=== PATIENT | female | born 1960 | race Caucasian/White ===

== ENCOUNTER 2016-07-08 18:54 | Inpatient (IN) | payer BC, OTHER ==
[~2016-07-08] VITALS: Ht 160 cm; Wt 56.7 kg
[2016-07-08 21:48] VITALS: BP 124/76
--- NOTE | 2016-07-08 21:51 | NUR ---
Pre-admission assessment Patient is a 56-year old, female, seen at intake at this time. Pt appears intoxicated from substances but is AAOx4, no SOB nor anxiety noted and able to respond to questions coherently. Pt is ambulatory with slight unsteady gait observed. Pt reported the following substance use: Heroin, Harvey, Xanax, Meth and Marijuana. Per pt, she smokes Heroin currently. Previous IV use was "9 months ago." Vital signs taken and as follows: JN=867/76, P=84, O2 sat on RA=96%, RR=20, T=98.4. Pt verbalized instructions and teachings regarding disposal of narcotic and other controlled home meds, unit protocols such as taking of vital signs Q4H and handling and disposal of contraband.
[2016-07-08 22:01] LABS: *URINE HCG, QUAL NEGATIVE (NEGATIVE)
[2016-07-08 22:07] LABS: *AMPHETAMINE, URINE POSITIVE (NEGATIVE); *BARBITURATE, URINE NEGATIVE (NEGATIVE); *CANNABINOID, URINE POSITIVE (NEGATIVE); *COCCAINE, URINE NEGATIVE (NEGATIVE); *OPIATE, URINE POSITIVE (NEGATIVE); *PHENCYCLIDINE SCREEN,URINE NEGATIVE (NEGATIVE)
--- NOTE | 2016-07-08 22:10 | NUR ---
ADMISSION Patient is a 56-year old, male, admitted and escorted by [facility] at 2155 to unit. Patient verbalized she is currently homeless for the past 2 weeks when her boyfriend kicked her out of the house when her boyfriend immediately caught her on the day she relapsed . Skin check done, no open skin noted, with blisters on both feet. Per patient, "the blisters are due to walking too much being homeless." With history of suicide attempt, last was more than 5 years ago. Currently, patient denies Suicidal Ideation nor Homicidal Ideation. No edema noted. Pt is ambulatory with slight unsteady gait noted due to intoxication. Pt stands 5'3" and weighs 125 pounds per standing scale. Vital signs are as follows: BP-120/68, T-97.4, P-74, RR-18 and SPO2 on RA=98%. Patient is AAOx4 and with no anxiety noted at this time. Lung sounds clear bilaterally upon auscultation. No cough noted and bowel sounds are present on all quadrants. PERRLA and pupils are 2 mm upon visual check. Pt reports NKA, on Regular Diet and is Full Code. Pt denies any seizure history. Per pt, withdrawal symptoms are Insomnia, chills, constipation, nausea and vomiting, colds sweats, irritability, anxiety, generalized body pain patricia both hands, both legs and neck and goosebumps. Substance history as follows: 1) Xanax-per pt, he started using at age 14. Patient stated that when she relapsed 2 weeks ago, she has been taking "4 mg PO, 5 times a day". She said that her doctor prescribes Xanax 1 mg PO daily and she takes more than prescribed. Last use was 07/08/2016 at 1800, 2 mg PO. 2) Heroin-per pt, he started using at age 20. Last IV use was 09/2015. For the past 2 weeks when patient relapsed, patient verbalized using the substance via smoking 1/2 gms daily. Last use was 07/08/2016 at 1400, 0.5 gm smoked. 3) Methampetamine-per pt, he started using at age 17 and since the relapse 2 weeks ago, patient verbalized smoking the substance "at least 1.5 gms daily. Last use was 07/08/2016 at 2100, 1.5 gm smoked. 4) Cannabis-per pt, he started using at age 12 and since the relapse, pt has been smoking on average 2 joints daily. Last use was 07/08/2016 at 1700, smoked 1 joint. Patient verbalized the he does not drink alcohol regularly. Per pt, she drinks red wine intermittently. Longest sobriety 11 years, [id number]. Patient informed PMHx of Enlargement of the heart, Fibromyalgia, Anxiety, Depression, Arthritis on both hands and neck, Hepatitis C, Pancreatitis, Drug Overdose (last in 09/2015, [facility]), Kidney Failure, Liver Failure and Pancreatitis (1992), Hypothyroidism, Endometriosis and Anorexia. Per pt, PCP is Dr. Albino Castle and no Psychiatirist. Home medications mentioned by the patient were reconciled. Treatment history as follows: Per pt, she has been to 16 programs and "a lot more detoxes." The last 3 places that the patient has been able ot recall are: 1) [facility] in [place], [place]-09/2015 to 02/2016 1) [facility] in [place], [place]-2014 3) [facility] in [place], [place]-2013 Patient reports smoking cigarettes, [place] Medium, about 1 pack daily. Oriented patient to room and instructed with the use of the call light, placed within reach. Fall, universal, seizure and safety precautions implemented. Kept patient warm, dry and comfortable. No c/o significant pain at this time All needs met. Information relayed to Dr. Hernandez. Patient refused Pneumonia vaccine despite explanation of risks and benefits and Flu vaccine is out of season. COWS=4, CIWA=4. Will continue to monitor. Addendum: 07/09/16 at 0122 by BETZY YOUNG RN Correction: Patient is female.
[2016-07-08] MEDS ORDERED: PROMETHAZINE HCL 25 MG/1 ML VIAL IM PRN (23:45)
[2016-07-08] MEDS ORDERED: IBUPROFEN 400 MG TABLET PO PRN (23:45)
[2016-07-08] MEDS ORDERED: CLONIDINE HCL 0.1 MG TABLET PO PRN (23:45)
[2016-07-08] MEDS ORDERED: BUPRENORPHINE HCL 2 MG TAB.SUBL SL PRN (23:45)
[2016-07-08] MEDS ORDERED: LORAZEPAM 2 MG/1 ML VIAL IM PRN (23:45)
[2016-07-08] MEDS ORDERED: DICYCLOMINE HCL 20 MG TABLET PO PRN (23:45)
[2016-07-08] MEDS ORDERED: diphenhydrAMINE 50 MG CAPSULE PO PRN (23:45)
[2016-07-08] MEDS ORDERED: HYDROXYZINE PAMOATE 25 MG CAPSULE PO PRN (23:45)
[2016-07-08] MEDS ORDERED: ACETAMINOPHEN 325 MG TABLET PO PRN (23:45)
[2016-07-08] MEDS ORDERED: MAG HYDROX/AL HYDROX/SIMETH 30 ML LIQUID UDC PO PRN (23:45)
[2016-07-08] MEDS ORDERED: MIRALAX 17 GM POWD.PACK PO PRN (23:45)
[2016-07-08] MEDS ORDERED: DIAZEPAM 10 MG TABLET PO PRN ×2 (23:45)
[2016-07-08] MEDS ORDERED: MAGNESIUM HYDROXIDE 30 ML LIQUID UDC PO PRN (23:45)
[2016-07-08] MEDS ORDERED: DIAZEPAM 5 MG TABLET PO PRN (23:45)
[2016-07-08] MEDS ORDERED: LOPERAMIDE HCL 2 MG CAPSULE PO PRN ×2 (23:45)
[2016-07-09] VITALS: BP 130/74
[2016-07-09 00:15] LABS: BASOPHILS % (AUTO) 0.7 % (0.0-2.0); EOSINOPHILS # (AUTO) 0.4 K/uL (0.0-0.7); EOSINOPHILS % (AUTO) 6.2 % (0.0-7.0); HEMATOCRIT 35.5 % (37-47); HEMOGLOBIN 11.6 G/DL (12.0-16.0); LYMPHOCYTES # (AUTO) 2.4 K/UL (0.8-4.8); LYMPHOCYTES % (AUTO) 34.9 % (20.5-51.5); MEAN CORPUSCULAR HEMOGLOBIN 29.5 UUG (27.0-31.0); MEAN CORPUSCULAR HGB CONC 33 g/dL (32.0-37.0); MONOCYTES # (AUTO) 0.7 K/UL (0.1-1.30); MONOCYTES % (AUTO) 10.5 % (0.0-11.0); NEUTROPHILS # (AUTO) 3.5 K/UL (1.8-8.9); NEUTROPHILS % (AUTO) 47.7 % (38.5-71.5); PLATELET COUNT (AUTO) 283 K/UL (150-450); RED BLOOD CELL COUNT(AUTO) 3.94 MIL/UL (4.2-5.4)
[2016-07-09] MEDS: METHOCARBAMOL 750 MG TABLET PO PRN (00:36)
--- NOTE | 2016-07-09 00:37 | NUR ---
RN note PRN Phenergan, Robaxin and Vistaril Pt c/o feeling nauseous, generalized muscle pain=5/10 and increasing anxiety. Administered Phenergan 25 mg IM, Robaxin 750 mg PO and Vistaril 50 mg PO as ordered. WIll reassess.
[2016-07-09 00:40] LABS: ALANINE AMINOTRANSFERASE 24 U/L (14-59); ALKALINE PHOSPHATASE 77 U/L (50-136); AMYLASE 51 U/L (25-115); ASPARTATE AMINOTRANSFERASE 27 U/L (15-37); BILIRUBIN,TOTAL 0.3 mg/dL (0.2-1.0); CARBON DIOXIDE 29 mmol/L (21-32); CHLORIDE 102 mmol/L (98-107); GLUCOSE 99 mg/dL (74-106); MAGNESIUM 2.1 mg/dL (1.8-2.4); POTASSIUM 3.1 mmol/L (3.5-5.1); TOTAL PROTEIN, SERUM 7.1 g/dL (6.4-8.2); UREA NITROGEN, BLOOD 14 mg/dL (7-18)
[2016-07-09] MEDS ORDERED: HYDROXYZINE PAMOATE 25 MG CAPSULE ONE (00:42)
[2016-07-09] MEDS ORDERED: METHOCARBAMOL 750 MG TABLET ONE (00:42)
[2016-07-09 00:47] LABS: ETHANOL < 3 MG/DL (0-0)
[2016-07-09 00:53] LABS: THYROID STIMULATING HORMONE 2.062 mIU/mL (0.358-3.740)
--- NOTE | 2016-07-09 00:54 | NUR ---
RN note one-time Trazodone Pt verbalized that she takes Trazodone 100 mg PO HS for sleep. Communicated with Dr. Bourgeois. ordered one-time Trazodone 100 mg PO. Administered medication as ordered and will reassess.
[2016-07-09] MEDS ORDERED: TRAZODONE 100 MG TABLET PO SCH (01:00)
[2016-07-09 01:11] LABS: LIPASE 145 U/L (73-393)
[2016-07-09] MEDS ORDERED: ATOM25CA PO (01:15)
[2016-07-09] MEDS ORDERED: TRAZ-147 PO (01:15)
[2016-07-09] MEDS ORDERED: POTASSIUM CHLORIDE 20 MEQ TAB.PRT.SR PO ONE (01:15)
[2016-07-09] MEDS ORDERED: ALPR1TAB7 PO (01:15)
[2016-07-09] MEDS ORDERED: POTASSIUM CHLORIDE 20 MEQ TAB.PRT.SR ONE (01:27)
--- NOTE | 2016-07-09 01:55 | NUR ---
RN note reassess Pt asleep on bed, no facial grimacing nor SOB noted. Pt on bed, comfortably tucked. Effective.
[2016-07-09 04:00] VITALS: BP 118/70
--- NOTE | 2016-07-09 07:07 | NUR ---
End of Shift Patient is a 56-year old, female, admitted for Xanax, Heroin, Methamphetamine and Cannabis Dependence. With PMHx of Enlargement of the heart, Fibromyalgia, Anxiety, Depression, Arthritis on both hands and neck, Hepatitis C, Pancreatitis, Drug Overdose (last in 09/2015, [facility]), Kidney Failure, Liver Failure and Pancreatitis (1992), Hypothyroidism, Endometriosis and Anorexia. Pt reports NKA, on Regular Diet and is Full Code. Pt denies any seizure history. Pt is AAOx4, with mild anxiety noted at this time. No SOB noted, not in respi distress. Pt is ambulatory with slight unsteady gait and with intact skin. Wheelchair at bedside PRN. Fall, universal and safety prec in place. Call light within reach. Kept pt warm, dry and comfortable. All needs met. Latest COWS=5, CIWA=4, slept for 6 hours. Endorsed to AM shift nurse for continuity of care.
--- NOTE | 2016-07-09 07:57 | NUR ---
START OF SHIFT: PT IS LAYING IN BED ASLEEP. RESPIRATIONS EVEN AND UNLABORED. BED LOCKED AND LOW. CALL ZAMUDIO IN REACH. WILL CONTINUE TO MONITOR AND PROVIDE SAFE AND SUPPORTIVE ENVIRONMENT.
[2016-07-09 08:00] VITALS: BP 116/69
[2016-07-09] MEDS ORDERED: ONDANSETRON 4 MG/2 ML VIAL IM PRN (08:15)
[2016-07-09] MEDS ORDERED: TUBERCULIN,PURIF.PROT.DERIV. 5 TU/0.1 ML TEST ID ONE (09:00)
[2016-07-09] MEDS: ONDANSETRON ODT 4 MG TAB.RAPDIS SL PRN (10:16)
[2016-07-09] MEDS: MULTIVITAMINS,THERAPEUTIC TABLET PO SCH (10:20)
--- NOTE | 2016-07-09 10:25 | NUR ---
PT IS A/O X 4. SHE IS SOBBING AND STATES SHE IS MISERABLE WITH CHILLS,SWEATS,BODY ACHES, AND ANXIETY. SHE ALSO C/O NAUSEA. FINE TREMORS NOTED TO HANDS. SHE IS FLUSHED. SHE STATES SHE HAS SEVERE MUSCLE ACHES IN HER LEGS AND SHE STATES HER LEGS FEEL WEAK. COWS 14 CIWA 8 INSTRUCTED PT TO USE W/C FOR AMBULATION TODAY DUE TO WEAKNESS IN LEGS. PRN ZOFRAN GIVEN FOR NAUSEA FOLLOWED WITH PRN SUBUTEX 4 MG AND PRN VALIUM 10 MG GIVEN FOR S/S OF W/D. ENCOURAGED INCREASED FLUIDS WHEN NAUSEA CEASES. PPD PLANTED TO LFA. WILL CONTINUE TO MONITOR AND PROVIDE SUPPORT.
--- NOTE | 2016-07-09 11:25 | NUR ---
PT STATES SHE FEELS BETTER. PRNS EFFECTIVE. COWS 7 CIWA 4.
[2016-07-09 12:00] VITALS: BP 100/72
[2016-07-09] MEDS ORDERED: LORAZEPAM 1 MG TABLET PO PRN ×2 (12:45)
[2016-07-09] MEDS: LORAZEPAM 1 MG TABLET PO SCH ×3 (12:56→21:02)
[2016-07-09] MEDS: BUPRENORPHINE HCL 2 MG TAB.SUBL SL SCH ×3 (12:57→21:02)
[2016-07-09] MEDS: GABAPENTIN 300 MG CAPSULE PO SCH ×2 (15:00→21:02)
[2016-07-09] MEDS: TOPIRAMATE 25 MG TABLET PO SCH ×2 (15:45→21:03)
[2016-07-09] MEDS: DULOXETINE 30 MG CAPSULE.DR PO SCH (15:45)
[2016-07-09 16:00] VITALS: BP 107/73
--- NOTE | 2016-07-09 16:13 | NUR ---
HELD 1500 MEDS PT IS TOO SEDATED. SHE IS SLURRING HER WORDS AND CANNOT KEEP HR EYES OPENED. ALSO DEFERRED COWS AND CIWA. WILL CONTINUE TO PROVIDE SAFE AND SUPPORTIVE ENVIRONMENT.
--- NOTE | 2016-07-09 18:50 | NUR ---
END OF SHIFT: PT STARTED SUBUTEX TAPER TODAY. SHE C/O NAUSEA,BODY ACHES,RESTLESSNESS,ANXIETY,SWEATS AND CHILLS THIS AM AND WAS TEARFUL. SHE STATED HER LEGS WERE WEAK AND ACHY AND INSTRUCTED TO USE WC FOR AMBULATION. DETOX MEDS WERE EFFECTIVE. SHE BECAME TOO SEDATED THIS AFTERNOON AND 1500 MEDS HELD AND COWS AND CIWA DEFERRED. LAST COWS 7 CIWA 4. PPD PLANTED TO LFA. ENCOURAGED INCREASED FLUIDS AND PT COMPLIANT. ENCOURAGED INCREASED FLUIDS TO ASSIST IN FACILITATING DETOX PROCESS. WILL PASS SHIFT REPORT TO ONCOMING NIGHT NURSE.
[2016-07-09 20:00] VITALS: BP 104/63
--- NOTE | 2016-07-09 20:00 | NUR ---
Start of Shift Patient is a 56-year old, female, admitted for Xanax, Heroin, Methamphetamine and Cannabis Dependence. With PMHx of Enlargement of the heart, Fibromyalgia, Anxiety, Depression, Arthritis on both hands and neck, Hepatitis C, Pancreatitis, Drug Overdose (last in 09/2015, [facility]), Kidney Failure, Liver Failure and Pancreatitis (1992), Hypothyroidism, Endometriosis and Anorexia. Pt reports NKA, on Regular Diet and is Full Code. Pt denies any seizure history. Pt is AAOx4, with mild anxiety noted at this time. No SOB noted, not in respi distress. Pt is ambulatory with steady gait and with intact skin. Fall, universal, seizure and safety prec in place. Call light within reach. All needs met. COWS=7, CIWA=5. Will continue to monitor pt.
[2016-07-09] MEDS ORDERED: DICYCLOMINE HCL 20 MG TABLET PO PRN (20:45)
[2016-07-09] MEDS: TRAZODONE 100 MG TABLET PO SCH (21:02)
--- NOTE | 2016-07-09 21:04 | NUR ---
RN note PRN Bentyl Pt c/o stomach cramps=07/28. Administered Bentyl 20 mg PO as ordered. Will reassess.
--- NOTE | 2016-07-09 22:05 | NUR ---
RN note reassess Pt verbalized stomach cramps has been relieved, pain level=2/10.
[2016-07-10] VITALS: BP 100/58
[2016-07-10 04:00] VITALS: BP 104/59
--- NOTE | 2016-07-10 07:02 | NUR ---
End of Shift Patient is a 56-year old, female, admitted for Xanax, Heroin, Methamphetamine and Cannabis Dependence. With PMHx of Enlargement of the heart, Fibromyalgia, Anxiety, Depression, Arthritis on both hands and neck, Hepatitis C, Pancreatitis, Drug Overdose (last in 09/2015, [facility]), Kidney Failure, Liver Failure and Pancreatitis (1992), Hypothyroidism, Endometriosis and Anorexia. Pt reports NKA, on Regular Diet and is Full Code. Pt denies any seizure history. Pt is AAOx4, with mild anxiety noted at this time. No SOB noted, not in respi distress. Pt is ambulatory with steady gait and with intact skin. Fall, universal, seizure and safety prec in place. Call light within reach. All needs met. COWS=4, CIWA=3, slept for 6 hours. Endorsed to AM shift nurse for continuity of care.
[2016-07-10 07:42] LABS: POTASSIUM 3.9 mmol/L (3.5-5.1)
[2016-07-10 08:00] VITALS: BP 107/80
[2016-07-10 08:06] LABS: HEPATITIS B SURFACE AG Negative (Negative)
--- NOTE | 2016-07-10 08:15 | NUR ---
START OF SHIFT: RECEIVED PT A/O X 4. HER HANDS ARE TREMULOUS . HER FACE IS FLUSHED . SHE C/O SEVERE MUSCLE ACHES/CRAMPS,ANXIETY. WEAKNESS,CHILLS,SWEATS AND SENSITIVITY TO NOISE AND LIGHT. ATIVAN/SUBUTEX TAPER IN PROGRESS. COWS 10 CIWA 7. PRN ROBAXIN GIVEN ALONG WITH SCHEDULED MEDS FOR MUSCLE ACHES.SAFETY PRECAUTIONS IN PLACE. ENCOURAGED INCREASED FLUIDS TO ASSIST IN FACILITATING DETOX PROCESS.ENCOURAGED REST. WILL CONTINUE TO MONITOR AND PROVIDE SAFE AND SUPPORTIVE ENVIRONMENT.
[2016-07-10] MEDS: LORAZEPAM 1 MG TABLET PO SCH ×3 (08:19→21:48)
[2016-07-10] MEDS: MULTIVITAMINS,THERAPEUTIC TABLET PO SCH (08:19)
[2016-07-10] MEDS: METHOCARBAMOL 750 MG TABLET PO PRN ×2 (08:19→21:53)
[2016-07-10] MEDS: DULOXETINE 30 MG CAPSULE.DR PO SCH (08:20)
[2016-07-10] MEDS: GABAPENTIN 300 MG CAPSULE PO SCH ×3 (08:20→21:49)
[2016-07-10] MEDS: BUPRENORPHINE HCL 2 MG TAB.SUBL SL SCH ×3 (08:20→21:50)
[2016-07-10] MEDS: TOPIRAMATE 25 MG TABLET PO SCH ×2 (08:20→21:49)
--- NOTE | 2016-07-10 10:54 | NUR ---
Clinician asked the client if she would be able to attend groups. Client said she is very tired and needs to sleep. Client had difficulty staying awake to answer the questions on her psycho-social assessment.
[2016-07-10 12:00] VITALS: BP 107/72
--- NOTE | 2016-07-10 12:45 | NUR ---
COWS AND CIWA DEFERRED PT IS ASLEEP. VS WNL. RESPIRATIONS EVEN AND UNLABORED. BED LOCKED AND LOW. CALL ZAMUDIO IN REACH. WILL CONTINUE TO PROVIDE SAFE AND SUPPORTIVE ENVIRONMENT.
[2016-07-10 16:00] VITALS: BP 123/74
--- NOTE | 2016-07-10 16:05 | NUR ---
HELD 1500 MEDS . PT IS SLURRING HER SPEECH AND FALLING ASLEEP DURING CONVERSATION.
--- NOTE | 2016-07-10 18:30 | NUR ---
END OF SHIFT: PT CONTINUES ON ATIVAN/SUBUTEX TAPER.LAST COWS 3 CIWA 3 SHE C/O MUSCLE ACHES,CRAMPS,ANXIETY.CHILLS AND SWEATS THIS AM. PRN ROBAXIN GIVEN ALONG WITH SCHEDULED MEDS FOR MUSCLE ACHES AND WAS EFFECTIVE. PT SLEPT OFF AND ON DURING SHIFT AND WAS TOO SEDATED FOR AFTERNOON MEDS.1500 MEDS HELD. ENCOURAGED BED REST AND INCREASED FLUIDS. BED LOCKED AND LOW. CALL ZAMUDIO IN REACH. WILL PASS SHIFT REPORT TO ONCOMING NIGHT NURSE.
[2016-07-10 20:00] VITALS: BP 119/86
--- NOTE | 2016-07-10 20:00 | NUR ---
1999 Patient received sleeping in low semi-fowlers position. Patient's color is pink and her skin is warm, very slightly moist and intact. Patient aroused for V/S and nurse assess. Patient states, "Oh hi. You know I though that I would be feeling much better by now. I don't know" Patient's lung sounds are clear essentially, though slightly diminished with rare rhonchi noted, that is cleared upon short, dry cough, and hypoactive bowel sounds are noted X 4 abdominal Quads, per auscultation. Patient denies any pain or other discomforts, though she c/o just feeling " very tired, I don't know" Patient is oriented to person, place, day and her personal situation. Reoriented to date and time. Patient states that she has really not eaten her regular diet trays too much today, though she states that she has been taking fluids a lot better. Patient states that she did not regularly attend [employer] groups today, though she does try her best to attend when she is feeling up to it. Vital signs are: 97.6-87-12 119/86, O2 Sat 97%, COWS 6, CIWA 5. Patient has clean, dry band-aid dressings to front of bilateral feet. Bilateral feet are pink and warm with good pedal pulses noted. Patient states that she has some healing 'blisters underneath dressings'. Patient does appear a bit drowsy but is verbally appropriate, though her speech is very slightly delayed in delivery, and she is also cooperative when interacting with nurse. Eye contact is direct, though minimal and her overall affect is flat. Patient was admitted on 07/08/16 for: Xanax, Heroin, Methamphetamine and Cannabis withdrawal, and she is currently on a 5-Day Ativan medication taper and a 5-Day Subutex medication taper per MD order. Bed is locked and in lowest position, bed rails are up X 2 and call light within patient's easy reach.
--- NOTE | 2016-07-10 20:45 | NUR ---
Patient took fluids, voided and washed her face at the bathroom sink and then she went ambulatory downstairs to hospital patio to smoke. Gait is slightly slow, measured but steady. Patient states, " I'm okay".
--- NOTE | 2016-07-10 21:10 | NUR ---
Patient back to her room in wheelchair, accompanied by staff Yaw lynne. Aniket states that patient did not want to walk back to the floor on her bilateral feet band-aid dressings. Dressings are clean, dry and intact to patient's feet. Patient got snack in kitchen and then she was wheeled to her room, where she got into her bed. Bed rails put up X 2 and call light at patient's hand.
[2016-07-10] MEDS: TRAZODONE 100 MG TABLET PO SCH (21:48)
--- NOTE | 2016-07-10 21:53 | NUR ---
PRN MEDICATION: Prn Robaxin 750 mg p.o. given for c/o achey muscles, 6/10 pain scale.
--- NOTE | 2016-07-10 22:53 | NUR ---
REASSESSMENT PRN MEDICATION: Patient is sleeping soundly with eyes closed and respirations quiet, regular, unlabored at 12.
[2016-07-11] VITALS: BP 98/67
[2016-07-11 04:00] VITALS: BP 100/69
--- NOTE | 2016-07-11 06:30 | NUR ---
0630 Patient slept a total of 9 hours and she had 1 void and no stools. Total intake was 855 ml p.o. Prn medication given noted separately per floor protocol. V/SS afebrile, COWS 4, COWS 3 at 0400. Patient is presently sleeping very deeply with eyes closed and respirations quiet, unlabored at 12. Patient is arouseable with touch and calling her name firmly at this time. Addendum: 07/11/16 at 0735 by SHAYNE SILVA RN LICHA at 0400 is 3
[2016-07-11 08:00] VITALS: BP_SYST 106; BP_SYST 135; BP_DIAS 62; BP_DIAS 79
[2016-07-11] MEDS ORDERED: BUPRENORPHINE HCL 2 MG TAB.SUBL SL SCH (09:00)
[2016-07-11] MEDS ORDERED: DULOXETINE 30 MG CAPSULE.DR PO SCH (09:00)
[2016-07-11] MEDS: GABAPENTIN 300 MG CAPSULE PO SCH ×3 (09:34→21:01)
[2016-07-11] MEDS: MULTIVITAMINS,THERAPEUTIC TABLET PO SCH (09:34)
[2016-07-11] MEDS: METHOCARBAMOL 750 MG TABLET PO PRN (09:34)
[2016-07-11] MEDS: LORAZEPAM 1 MG TABLET PO SCH ×4 (09:34→21:01)
--- NOTE | 2016-07-11 09:34 | NUR ---
PRN ROBAXIN AND ONDASETRON ODT Patient reports body pain 5/10 and nausea. PRN robaxin and ondansetron ODT given. will continue to monitor patient and effectiveness of meds.
[2016-07-11] MEDS: TOPIRAMATE 25 MG TABLET PO SCH ×2 (09:35→21:02)
[2016-07-11] MEDS: ONDANSETRON ODT 4 MG TAB.RAPDIS SL PRN (09:35)
[2016-07-11] MEDS: DULOXETINE 60 MG CAPSULE.DR PO SCH (09:35)
--- NOTE | 2016-07-11 10:00 | NUR ---
START OF SHIFT Received report from retail shift leader nurse. Received patient using the bathroom. Patient appears tremulous as she abi ut of bathroom, responsive to questions. Patient is 56 year old female admitted for medically supervised withdrawal from alcohol, benzodiazepines, and opiates. Patient is full code with NKA. On fall precautions. On assessment this AM: CIWA: 8 and COWS: 8. Patient reports anxiety, nausea, tremors, body aches and visual hallucinations (sees shadows of humans). Denies chest pain and headache. Patient reports poor appetite, encouraged to hydrate with fluids, provided patient with bottled water. Patient on 5- day Ativan and 5 Day Subutex taper. PRN ondansetron ODT and robaxin given. Med compliant. Patient was encouraged to attend group meetings today. Will continue to monitor patient.
--- NOTE | 2016-07-11 10:34 | NUR ---
REASSESSMENT (ROBAXIN AND ONDANSETRON) Patient reports nausea resolved and pain decreased to 2/10. Will continue to monitor patient.
[2016-07-11 12:00] VITALS: BP 96/64
[2016-07-11] MEDS ORDERED: BUPRENORPHINE HCL 2 MG TAB.SUBL SL ONE (12:00)
--- NOTE | 2016-07-11 13:00 | NUR ---
HELD 1300PM MED Held Ativan as patient too sedated. notified.
[2016-07-11] MEDS: BACLOFEN 10 MG TABLET PO SCH ×2 (15:00→21:01)
[2016-07-11] MEDS: BUPRENORPHINE HCL 2 MG TAB.SUBL SL SCH ×2 (15:00→21:01)
[2016-07-11] MEDS: DICYCLOMINE HCL 20 MG TABLET PO SCH ×2 (15:00→21:01)
--- NOTE | 2016-07-11 15:00 | NUR ---
MARCO AND ANTHONYWA DEFERRED Patient was too sedated for assessment at this time.
--- NOTE | 2016-07-11 15:00 | NUR ---
HELD 1500PM MEDS Patient was too sedated at this time. Held 1500pm meds. notified.
[2016-07-11 16:00] VITALS: BP 104/60
--- NOTE | 2016-07-11 19:09 | NUR ---
END OF SHIFT Patient is 56 year old female admitted for medically supervised withdrawal from alcohol, benzodiazepines, and opiates. Patient is full code with NKA. On fall precautions. Most recent CIWA: 3 and COWS: 4. Patient appears too sedated after receiving her Ativan and Subutex in the AM, with slowed speech. Initial BP at lunch time was low 12:00PM was 88/56, HR 80, recheck was 94/53, HR 76 and 96/64, HR 77. Assisted patient to hydrate with fluids, unable to stay awake for her lunch. Held Ativan 1300pm med and 1500pm meds due to sedation, MD aware. Orthopedic Dentist was informed by patient's referrer about the dark pigmentation on her tongue. On assesment, patches of purplish pigmentation noted on the anterior tongue, no lesions noted, Md notified. All needs met. invasive cardiologistretail shift leader will continue to monitor patient.
[2016-07-11 20:00] VITALS: BP 129/77
--- NOTE | 2016-07-11 20:00 | NUR ---
Start of Shift Note: Report received from day shift nurse. Pt is a 56 Y/O female admitted on 07/08/16 for medically-supervised withdrawal from benzodiazepine, opiates, and methamphetamine. Pt reports using 20mg Xanax, 0.5gm heroin, and 1.5gm methamphetamine daily for 2 weeks. Pt is on the third day of 5-day Ativan and Subutex tapers. Pt received with last COWS=4, CIWA=3, and PRN's Zofran, Robaxin, and Motrin were given during day shift. Pt reports NKDA/NKFA. Full code status. Pt is on a regular diet. Pt reports PMHx: enlarged heart, Hep-C, fibromyalgia, pancreatitis, anxiety, depression, arthritis, panic DO, hypothyroid, endometriosis, anorexia, drug OD (2015), kidney and liver failure with pancreatitis (1992). Pt received in room, and reports diaphoresis, chills, nausea, tremor, agitation, and fatigue. Bed is in low position and locked, side rails up x2, call light within reach. Will continue to monitor.
[2016-07-11] MEDS: TRAZODONE 100 MG TABLET PO SCH (21:01)
[2016-07-12] VITALS (7 sets, daily range): BP systolic 78–111; BP diastolic 40–69
--- NOTE | 2016-07-12 | NUR ---
COWS/CIWA Deferred: 00:00 COWS and CIWA assessments are deferred for sleep. VS stable on 2L O2. All safety precautions are in place. Will continue to monitor. Addendum: 07/12/16 at 0257 by LARY JEFFRIES RN Amended: Links added.
--- NOTE | 2016-07-12 00:30 | NUR ---
Decreased BP and SpO2: BP 78/40 and SpO2 80% on RA. Pt is drowsy and difficult to arouse. HOB raised and pt placed on 2L O2. Vitals reassessed and BP increased to 87/58 and SpO2 to 95%.
--- NOTE | 2016-07-12 04:00 | NUR ---
COWS/CIWA Deferred: Ordered 04:00 COWS and CIWA assessments are deferred for sleep. V/S stable. All safety precautions are in place. Will continue to monitor. Addendum: 07/12/16 at 0522 by LARY JEFFRIES RN Amended: Links added.
--- NOTE | 2016-07-12 06:57 | NUR ---
End of Shift Note: Pt is a 56 Y/O female admitted to [facility] on 07/08/16 for medically-supervised withdrawal from benzodiazepine, opiates, and methamphetamine. Pt reports PMHx: enlarged heart, Hep-C, fibromyalgia, pancreatitis, anxiety, depression, arthritis, panic DO, hypothyroid, endometriosis, anorexia, drug OD (2015), kidney and liver failure with pancreatitis (1992). Pt reports NKDA/NKFA. Full code status. Pt is on a regular diet. Pt reports using 20mg Xanax, 0.5gm heroin, and 1.5gm methamphetamine daily for 2 weeks. Pt is to start the fourth day of 5-day Ativan and Subutex tapers. Scheduled medication regime effectively managed s/s of withdrawal this shift, and no PRN medications were necessary. Last COWS=6, CIWA=6 at 20:00. Pt's BP and SpO2 decreased at 78/44 and 80% on RA, and pt was placed on 2L O2 and HOB raised; BP then increased to 87/58 and SpO2 to 95%. Pt continues on 2L O2 via NC to maintain SpO2 at 95-96. Total fluid intake this shift: 875 ml; output: urine x 1 and BM x 0. Pt currently in bed and slept 7 hours this shift. Pt endorsed to day shift nurse.
[2016-07-12] MEDS: GABAPENTIN 300 MG CAPSULE PO SCH ×2 (09:30→15:00)
[2016-07-12] MEDS: MULTIVITAMINS,THERAPEUTIC TABLET PO SCH (09:30)
[2016-07-12] MEDS: TOPIRAMATE 25 MG TABLET PO SCH ×2 (09:31→20:56)
[2016-07-12] MEDS: DULOXETINE 60 MG CAPSULE.DR PO SCH (09:31)
[2016-07-12] MEDS: DICYCLOMINE HCL 20 MG TABLET PO SCH ×3 (09:31→20:56)
[2016-07-12] MEDS: BACLOFEN 10 MG TABLET PO SCH ×3 (09:32→20:56)
--- NOTE | 2016-07-12 10:00 | NUR ---
START OF SHIFT Received report from cnc machinist 2nd shift nurse. Received patient staying in bed, arousable but appears sedated Patients BP 103//63, HR 74, R16, satting at 95% room air (pt. had removed her nasal cannula). Patient later became more awake and alert. Patient is 56 year old female admitted for medically supervised withdrawal from alcohol, benzodiazepines, and opiates. Patient is full code with NKA. On fall precautions. On assessment this AM: CIWA: 3 and COWS: 3. Patient reports mild anxiety, tremors, body aches. Patient ate 25% of her breakfast, encouraged to hydrate with fluids. Patient on 5- day Ativan and 5 Day Subutex taper. Med compliant. Ativan and subutex given as ordered. Patient placed back on oxygen 2L via nasal cannula. Patient was encouraged to attend group meetings today. Will continue to monitor patient.
[2016-07-12] MEDS: BUPRENORPHINE HCL 2 MG TAB.SUBL SL SCH ×3 (10:04→20:56)
[2016-07-12] MEDS: LORAZEPAM 1 MG TABLET PO SCH ×3 (10:04→20:56)
[2016-07-12 13:10] LABS: CREATININE 1.1 mg/dL (0.6-1.3); MAGNESIUM 2.1 mg/dL (1.8-2.4); POTASSIUM 3.9 mmol/L (3.5-5.1)
--- NOTE | 2016-07-12 15:56 | NUR ---
HELD 1500PM MEDS Patient noted too sedated to administer her meds at this time.
--- NOTE | 2016-07-12 16:00 | NUR ---
COWS AND CIWA DEFERRED PATIENT TOO SEDATED.
[2016-07-12] MEDS: FERROUS SULFATE 325 MG TABEC PO SCH (17:00)
--- NOTE | 2016-07-12 19:00 | NUR ---
END OF SHIFT Patient is 56 year old female admitted for medically supervised withdrawal from alcohol, benzodiazepines, and opiates. Patient is full code with NKA. On fall precautions. Most recent CIWA: 4 and COWS: 4 (Deferred 4pm as patient was too sedated). Patient tolerated the Ativan and Subutex given in the AM. Patient noted with slowed gait but ambulating independently and participated in groups this AM. Patient intermittently removes her nasal cannula and has to be reminded to continue to use it. Patient noted too sedated after lunch time. Had to be assisted back to her bed after noting that she was sitting and sleeping in the toilet. Held 1500pm and 17:00pm meds due to sedation, MD notified. Continue to encourage patient to hydrate with fluids. All needs met. date night caregivernight warehouse selector will continue to monitor patient.
--- NOTE | 2016-07-12 20:00 | NUR ---
Start of Shift Note: Report received from day shift nurse. Pt is a 56 yo female admitted on 07/08/16 for medically-supervised withdrawal from benzodiazepine, opiates, and methamphetamine. Pt reports using 20mg Xanax, 0.5gm heroin, and 1.5gm methamphetamine daily for 2 weeks. Pt is on the fourth day of 5-day Ativan and Subutex tapers. Pt received with last COWS=4, CIWA=4, and no PRNs were given during day shift. Taper medications held during day shift for over-sedation. Pt reports NKDA/NKFA. Pt is a full code. Pt is on a regular diet. Pt reports PMHx: enlarged heart, Hep-C, fibromyalgia, pancreatitis, arthritis, hypothyroid, endometriosis, anorexia, drug OD (2015), kidney and liver failure with pancreatitis (1992), panic DO, anxiety, depression. Pt received in room, and reports restlessness, anxiety, tremor. Bed is in low position and locked, side rails up x2, call light within reach. Will continue to monitor.
[2016-07-12] MEDS: TRAZODONE 100 MG TABLET PO SCH (20:56)
[2016-07-12] MEDS ORDERED: GABAPENTIN 300 MG CAPSULE PO SCH (21:00)
[2016-07-13] VITALS (7 sets, daily range): BP systolic 89–108; BP diastolic 57–76
--- NOTE | 2016-07-13 02:15 | NUR ---
1:1 Order Patient found sitting on floor leaning against dresser. Patient reports that she did not fall, states that her "sweater got stuck on the dresser handle" and was unable to get back up. Skin assessed and is intact. Patient was not wearing O2/nasal canula when found. SpO2 off O2 is 85%. Patient placed back on O2 and SpO2 increased to 96%. BP 99/58, RR 14, HR 84, T 98.2. Patient placed on 1:1 for safety and non-compliance with O2 order. made aware.
--- NOTE | 2016-07-13 04:00 | NUR ---
COWS/CIWA Deferred: COWS/CIWA is deferred for sleep. V/S stable on 2L O2. Bed is in low position and locked, side rails up x2, call light within reach. Will continue to monitor. Addendum: 07/13/16 at 0505 by LARY JEFFRIES RN Amended: Links added.
--- NOTE | 2016-07-13 07:02 | NUR ---
End of Shift Note: Pt is a 56 yo female admitted to [facility] on 07/08/16 for medically-supervised withdrawal from benzodiazepines, opiates, and methamphetamine. Pt reports PMHx: enlarged heart, Hep-C, fibromyalgia, pancreatitis, hypothyroid, endometriosis, anorexia, drug OD (2015), kidney and liver failure with pancreatitis (1992), arthritis, anxiety, depression, panic DO. NKDA/NKFA, full code status, regular diet. Pt reports using 20mg Xanax, 0.5gm heroin, and 1.5gm methamphetamine daily for 2 weeks. Pt continues on 5-day Ativan and Subutex tapers. Scheduled medication regime effectively managed s/s of withdrawal this shift, and no PRN medications were necessary. Last COWS=4, CIWA=5 at 00:00. Pt placed on 1:1 this shift for non-compliance with O2 order when patient was found sitting on floor. Total fluid intake this shift: 1091 ml; output: urine x 2 and BM x 0. Pt currently in bed and slept 7 hours this shift. Pt endorsed to day shift nurse.
--- NOTE | 2016-07-13 07:52 | NUR ---
Start of shift note; Received report from night nurse. Patient is a 56 year old female admitted on 07/08/16 for Benzo/ opiate/ Meth dependence. Patient reported history of enlarged heart, fibromyalgia, anxiety, arthritis, panic attacks, HEP C, pancreatitis, Drug Overdose in 2015, kidney failure in 1992, hypothyroidism, endometriosis, anorexia. Patient was placed on a 5 day Ativan and 5 day Subutex taper. Patient is currently on 2 LPM via Nasal cannula to maintain SPO2 of >95%. Patient is on 1:1 sitter for safety. All safety measures secured. Will continue to monitor patient.
[2016-07-13] MEDS ORDERED: BUPRENORPHINE HCL 2 MG TAB.SUBL SL SCH ×2 (09:00)
[2016-07-13] MEDS ORDERED: LORAZEPAM 1 MG TABLET PO SCH (09:00)
--- NOTE | 2016-07-13 09:30 | NUR ---
Medication held; Ativan and Subutex dose held due to sedation, MD notified. Sitter at bedside.
[2016-07-13] MEDS: GABAPENTIN 300 MG CAPSULE PO SCH ×4 (09:50→21:57)
[2016-07-13] MEDS: BACLOFEN 10 MG TABLET PO SCH (09:50)
[2016-07-13] MEDS: DULOXETINE 60 MG CAPSULE.DR PO SCH (09:50)
[2016-07-13] MEDS: TOPIRAMATE 25 MG TABLET PO SCH ×3 (09:50→21:56)
[2016-07-13] MEDS: DICYCLOMINE HCL 20 MG TABLET PO SCH ×4 (09:50→21:57)
[2016-07-13] MEDS: MULTIVITAMINS,THERAPEUTIC TABLET PO SCH (09:50)
[2016-07-13] MEDS: FERROUS SULFATE 325 MG TABEC PO SCH ×4 (09:50→21:57)
[2016-07-13] MEDS ORDERED: HYDROXYZINE PAMOATE 25 MG CAPSULE PO PRN (13:00)
[2016-07-13] MEDS ORDERED: ASCO250T5 PO (13:56)
[2016-07-13] MEDS ORDERED: DICY20TA28 PO (13:57)
[2016-07-13] MEDS ORDERED: FERR325T28 PO (13:57)
[2016-07-13] MEDS ORDERED: Duloxetine Hcl PO (13:57)
[2016-07-13] MEDS ORDERED: Gabapentin PO (13:57)
[2016-07-13] MEDS ORDERED: HYDR-3895 PO (13:57)
[2016-07-13] MEDS ORDERED: TOPI25TA8 PO (13:57)
[2016-07-13] MEDS ORDERED: DIPH50CA37 PO (13:57)
--- NOTE | 2016-07-13 14:18 | NUR ---
Medications held; Medications for 1500 held due to patient appears sedated. Sitter at bedside.
--- NOTE | 2016-07-13 15:27 | NUR ---
Endorsement given; Patient is AOX4. Patient remained on 1:1 supervision for safety. Detailed report given to covering nurse. All safety measures secured. Met all needs.
--- NOTE | 2016-07-13 15:28 | NUR ---
Assumed Care: Assumed care for the patient at this time. [facility]
--- NOTE | 2016-07-13 18:49 | NUR ---
End of Shift Notes: Patient is a 56 year old female admitted for opiate and BZO dependence who was placed on a 5-day Subutex and 5-day Ativan taper as ordered. No adverse reactions noted. Patient completed both her tapers. Has past medical hx of enlarged heart, Hep C, fibromyalgia, anxiety, depresion, arthritis, pancreatitis, kidney failure, liver failure, hypothyroidism, endometriosis, and anorexia. On 1:1 due to episodes of oversedation. VS monitored closely q 4 hours. No significant abnormalities noted. No episodes of desaturation noted. Withdrawal symptoms were monitored. Patient presented with chills hot flashes, mild tremors and anxiety. Initial COWS 3/CIWA 3. Last COWS 1/CIWA 2. Unable to participate in group and therapy sessions. All needs met and attended. Patient will be discharging tomorrow. UDS in and resulted. Will continue to monitor closely.
--- NOTE | 2016-07-13 19:05 | NUR ---
Start of Shift Patient Received. Patient was noted in the hallway with RIFFLER TENDER within arms reach. Patient was on her way out to the smoking patio. Patient noted to be alert and oriented, and gait noted to be steady. Patient is a 56 year old female, admitted on 07/08/16 for Benzo and Opiate Dependence. Patient was placed on 5 day Ativan and 5 Day Subutex taper. Patient verbalizes no known allergies, wishes to be full code, following a regular diet, skin noted intact, and placed on fall and seizure precautions. Patient verbalized past medical history of Enlarged Heart, Fibromyalgia, Anxiety, Depression, Arthritis, Depression, Panic Attack, Hep C +, Pancreatitis, Drug Overdose (09/2015), Kidney Failure, Liver Failure, Hypothyroidism, Endometriosis, and Anorexia. Per endorsement, patient 0900 and 1500 medications held due to patient sleeping. No PRN medications Administered. Patient is set for discharge tomorrow 07/14/16 to [facility]. Patient continues on Oxygen 2 Liters while sleeping due to episodes of Desaturation. All needs attended to promptly. Will continue to monitor.
[2016-07-13 19:49] LABS: *AMPHETAMINE, URINE NEGATIVE (NEGATIVE); *BARBITURATE, URINE NEGATIVE (NEGATIVE); *CANNABINOID, URINE NEGATIVE (NEGATIVE); *COCCAINE, URINE NEGATIVE (NEGATIVE); *OPIATE, URINE NEGATIVE (NEGATIVE); *PHENCYCLIDINE SCREEN,URINE NEGATIVE (NEGATIVE)
[2016-07-13] MEDS: ASCORBIC ACID 250 MG TABLET PO SCH ×2 (21:00→21:57)
[2016-07-13] MEDS: TRAZODONE 100 MG TABLET PO SCH ×2 (21:00→21:57)
[2016-07-14 00:15] VITALS: BP 97/68
[2016-07-14 04:30] VITALS: BP 106/68
--- NOTE | 2016-07-14 07:09 | NUR ---
End of Shift Patient is in bed sleeping, but easily arousbale to stimuli. Breathing even and non labored. No signs of pain or discomfort noted. Patient is a 56 year old female, admitted on 07/08/16 for Benzo and Opiate Dependence. Patient was placed on 5 day Ativan and 5 Day Subutex taper. Patient verbalizes no known allergies, wishes to be full code, following a regular diet, skin noted intact, and placed on fall and seizure precautions. Patient verbalized past medical history of Enlarged Heart, Fibromyalgia, Anxiety, Depression, Arthritis, Depression, Panic Attack, Hep C +, Pancreatitis, Drug Overdose (09/2015), Kidney Failure, Liver Failure, Hypothyroidism, Endometriosis, and Anorexia. No PRN medications Administered. Patient is set for discharge today 07/14/16 to [facility]. Patient continues on Oxygen 2 Liters while sleeping due to episodes of Desaturation. All needs attended to promptly. Will continue to monitor.
--- NOTE | 2016-07-14 07:20 | NUR ---
Start of shift note SBAR report rcv'd. Pt was admitted for benzo dependence, opiate dependence, methamphetamine and marijuana use. pt has a PMHx of enlarged heart, fibromyalgia, anxiety, depression, arthritis, panic attack, hepatitis C, pancreatitis, drug overdose, kidney failure, liver failure, hypothyroidism, endometriosis, and anorexia. Pt has successfully completed an ativan and subutex taper without any ASE. Pt states that she feels ready for discharge. Pt has no complaints at this time. Will continue to monitor pt. All needs addressed at this time.
[2016-07-14 08:00] VITALS: BP 115/69
[2016-07-14] MEDS: FERROUS SULFATE 325 MG TABEC PO SCH (08:22)
[2016-07-14] MEDS: GABAPENTIN 300 MG CAPSULE PO SCH (08:22)
[2016-07-14] MEDS: DICYCLOMINE HCL 20 MG TABLET PO SCH (08:22)
[2016-07-14] MEDS: DULOXETINE 60 MG CAPSULE.DR PO SCH (08:22)
[2016-07-14] MEDS: TOPIRAMATE 25 MG TABLET PO SCH (08:23)
[2016-07-14] MEDS: ASCORBIC ACID 250 MG TABLET PO SCH (08:23)
[2016-07-14] MEDS: MULTIVITAMINS,THERAPEUTIC TABLET PO SCH (08:23)
[2016-07-14] MEDS ORDERED: BUPRENORPHINE HCL 2 MG TAB.SUBL SL SCH (09:00)
--- NOTE | 2016-07-14 10:45 | NUR ---
Discharge note Pt was admitted for opiate and benzo dependence. Pt has a COWS of [address] a CI[address] of 7. Dr Morgan aware, saw pt and cleared her for discharge. Pt states that she feels ready for discharge. Verbalized her understanding of the discharge instructions. Pt VS are WNL. LBM 07/13/16. Pt denies SI/HI. All needs addressed at this time. Pt prescriptions, discharge instructions and all belongings returned to pt. Pt ID band removed, pt ambulated off of unit, left facility via private vehicle for Tito.
[2016-07-16 21:17] LABS: *HCV QUANT HCV Not Detected IU/mL (.)
== END 2016-07-14 10:45 | disposition home or self-care (01) | DRG 895 ==
LOC: SRC 20:53
PROVIDERS: ADMIT Internal Medicine; ATTEND Internal Medicine
PROC: HZ2ZZZZ Detoxification Services for Substance Abuse Treatment (ICD-10-PCS; principal; 2016-07-08)
PROC: HZ41ZZZ Group Counseling for Substance Abuse Treatment, Behavioral (ICD-10-PCS; 2016-07-09)
PROC: HZ31ZZZ Individual Counseling for Substance Abuse Treatment, Behavioral (ICD-10-PCS; 2016-07-10)
DX: F11.23 Opioid dependence with withdrawal (principal); F31.32 Bipolar disorder, current episode depressed, moderate; F13.230 Sedative, hypnotic or anxiolytic dependence with withdrawal, uncomplicated; F10.230 Alcohol dependence with withdrawal, uncomplicated; Y90.9 Presence of alcohol in blood, level not specified; M79.7 Fibromyalgia; Z59.0 Homelessness; E87.6 Hypokalemia; G89.29 Other chronic pain; F15.10 Other stimulant abuse, uncomplicated; B19.20 Unspecified viral hepatitis C without hepatic coma; D50.9 Iron deficiency anemia, unspecified; F12.90 Cannabis use, unspecified, uncomplicated; E03.9 Hypothyroidism, unspecified; Z87.19 Personal history of other diseases of the digestive system; Z91.89 Other specified personal risk factors, not elsewhere classified; Z59.1 Inadequate housing; Z80.0 Family history of malignant neoplasm of digestive organs; F17.210 Nicotine dependence, cigarettes, uncomplicated
CPT/HCPCS: 36415; 70030-TC; 80307; 80324; 80346; 80349; 80361; 82746; 83550; 83690; 83735; 84443; 84703; 85025; 86580; 86592; 86705; 86803; 87340; 87521; 87806; A4663; G6040-TC; Q0162

== ENCOUNTER 2017-02-25 21:49 | Inpatient (IN) | payer BC, OTHER ==
[~2017-02-25] VITALS: Ht 160 cm; Wt 51.3 kg
[~2017-02-25 21:49] MED LIST: ASCO250T5 PO; DICY20TA28 PO; DIPH50CA37 PO; Duloxetine Hcl PO; FERR325T28 PO; Gabapentin PO; HYDR-3895 PO; TOPI25TA PO; TRAZ-147 PO
[2017-02-25] MEDS ORDERED: IBUPROFEN 600 MG TABLET PO PRN (23:00)
[2017-02-25] MEDS ORDERED: LORAZEPAM 1 MG TABLET PO PRN ×2 (23:00)
[2017-02-25] MEDS ORDERED: LORAZEPAM 2 MG/1 ML VIAL IM PRN (23:00)
[2017-02-25] MEDS ORDERED: DICYCLOMINE HCL 20 MG TABLET PO PRN (23:00)
[2017-02-25] MEDS ORDERED: diphenhydrAMINE 50 MG CAPSULE PO PRN (23:00)
[2017-02-25] MEDS ORDERED: MAGNESIUM HYDROXIDE 30 ML LIQUID UDC PO PRN (23:00)
[2017-02-25] MEDS ORDERED: MAG HYDROX/AL HYDROX/SIMETH 30 ML LIQUID UDC PO PRN (23:00)
[2017-02-25] MEDS ORDERED: MIRALAX 17 GM POWD.PACK PO PRN (23:00)
[2017-02-25] MEDS ORDERED: ACETAMINOPHEN 325 MG TABLET PO PRN (23:00)
[2017-02-25] MEDS ORDERED: THIAMINE HCL 200 MG/2 ML VIAL IM ONE (23:00)
[2017-02-25] MEDS ORDERED: LOPERAMIDE HCL 2 MG CAPSULE PO PRN ×2 (23:00)
[2017-02-25 23:15] VITALS: BP 181/110
[2017-02-25] MEDS ORDERED: BUPRENORPHINE HCL 2 MG TAB.SUBL SL PRN (23:15)
--- NOTE | 2017-02-25 23:20 | NUR ---
Pre-Admission Pre-admission assessment performed in the intake department of [facility]. Pt is A&O and ambulatory with a steady gait. She is accompanied in the intake office by her fiance. Pt does not appear intoxicated and answers questions appropriately. She appears anxious, nervous, and states "it's been a very hectic day". B/P 181/110, HR 96, RR 16, O2 sat 97%, T 98.3. She denies pain, dizziness, or SOB. Pt reports that she has been using Xanax, ETOH, Methamphetamine, and GHB. She also has a history of heroin use. Pt is stable and [facility]
[2017-02-25 23:38] LABS: BASOPHILS % (AUTO) 0.6 % (0.0-2.0); EOSINOPHILS # (AUTO) 0.1 K/uL (0.0-0.7); EOSINOPHILS % (AUTO) 2.1 % (0.0-7.0); HEMATOCRIT 38.4 % (31.2-41.9); HEMOGLOBIN 12.9 g/dL (10.9-14.3); LYMPHOCYTES % (AUTO) 27.9 % (20.5-51.5); MEAN CORPUSCULAR HGB CONC 34 g/dL (32.3-35.6); MEAN CORPUSCULAR VOLUME 89.2 fL (75.5-95.3); MONOCYTES # (AUTO) 0.7 K/uL (2.0-10.0); MONOCYTES % (AUTO) 10.6 % (0.0-11.0); NEUTROPHILS # (AUTO) 4.1 K/uL (1.8-8.9); NEUTROPHILS % (AUTO) 58.8 % (38.5-71.5); PLATELET COUNT (AUTO) 339 K/uL (179-408); RED BLOOD CELL COUNT(AUTO) 4.31 MIL/uL (3.63-4.92)
[2017-02-25 23:43] LABS: *URINE HCG, QUAL NEGATIVE (NEGATIVE)
[2017-02-25] MEDS: CLONIDINE HCL 0.1 MG TABLET PO PRN (23:50)
--- NOTE | 2017-02-25 23:50 | NUR ---
One time Ativan and PRN Clonidine Pt's B/P on admission is 181/110 and HR 96. COWS 9 and CIWA 13. She is highly anxious, restless, and states "it's driving my crazy inside". Pt is cooperative, able to focus, and answer questions. Encouraged relaxation. One time Ativan and PRN Clonidine administered per orders.
[2017-02-25 23:51] LABS: ALANINE AMINOTRANSFERASE 23 U/L (14-59); ALKALINE PHOSPHATASE 93 U/L (50-136); AMYLASE 72 U/L (25-115); ASPARTATE AMINOTRANSFERASE 21 U/L (15-37); BILIRUBIN,TOTAL 0.2 mg/dL (0.2-1.0); CARBON DIOXIDE 32 mmol/L (21-32); CHLORIDE 99 mmol/L (98-107); CREATININE 1.1 mg/dL (0.6-1.3); GLUCOSE 112 mg/dL (74-106); MAGNESIUM 2.2 mg/dL (1.8-2.4); POTASSIUM 3.1 mmol/L (3.5-5.1); UREA NITROGEN, BLOOD 7 mg/dL (7-18)
[2017-02-25] MEDS ORDERED: CLONIDINE HCL 0.1 MG TABLET ONE (23:52)
[2017-02-25] MEDS ORDERED: LORAZEPAM 1 MG TABLET ONE (23:52)
[2017-02-25] MEDS ORDERED: THIAMINE HCL 200 MG/2 ML VIAL ONE (23:52)
[2017-02-25 23:53] LABS: ETHANOL < 3 MG/DL (0-0)
[2017-02-25] MEDS ORDERED: LORAZEPAM 1 MG TABLET PO ONE (23:55)
[2017-02-26 00:50] VITALS: BP 117/75
--- NOTE | 2017-02-26 00:50 | NUR ---
One time Ativan and PRN Clonidine reassessment PRN Ativan and Clonidine effective. Pt's B/P 117/75 and HR 94. She reports feeling somewhat more relaxed and less anxious. COWS 5 and CIWA 6.
--- NOTE | 2017-02-26 01:00 | NUR ---
ADMISSION Pt is a 57 yo female who arrived on the [facility] unit at 2332 on 02/25/2017. She is A&O and ambulatory with a steady gait. Body check performed by [facility] and skin check performed by the nurse. Pt was oriented to the unit and shown to her room. She reports NKA, wishes to be full code status, and is on a kosher and pescetarian diet. Pt is cooperative during assessment and answers questions appropriately. Vital signs in intake are B/P 181/110, HR 96, RR 16, O2 sat 97%, T 98.3. Pt is 5'3" and weighs 113lb. Pt has a PHM of fibromyalgia, Hepatitis C treated, hypothyroid, arthritis of wrists and hands, anxiety, and depression. Lung sounds clear, PERRLA, brisk capillary refill, bowel sounds present, skin is intact. Last BM was 02/24/17. History of Use 1) BZD/Xanax PO 8mg per day for the past 30 days. Last used 4mg on 02/24/2017 at 0900. She has used xanax for 15 years. 2) ETOH/Vodka 16 oz per day for the past 30 days. Last used 8 oz on 02/25/17 at 2100. She has used ETOH for the past 45 years. 3) Heroin IV and smoke 0.5-1 grams per day for the past 30 days. Last used 1 gram 1.5 months ago. She has used heroin for 37 years. 4) Methamphetamine IV and smoke 1 gram per day for the past 30 days. Last used 0.25 grams on 02/25/17 at 2100. She has used Meth for 5 years. 5) GHB 4 oz per night for the past 30 days. Last used 4 oz on 02/24/2017. She has used GHB for 2 months. 6) Marijuana 1 gram 4 days per week. Last used 02/24/17. She has used marijuana for 40 years. Treatment History [facility] 06/2016 [facility] 09/2015-02/2016 [facility] 2014 [facility] 2013 Pt smokes 10 cigarettes per day. She reports overdosing on heroin 2 months ago, she went to treatment for 30 days and relapsed again 30 days ago. Her longest period of sobriety was 11 years from [id number]. She decided to come to treatment today because "I'm sick and tired". She lives at home with her fiance. Pt has tremors, high anxiety, and restlessness. Her COWS 9 and CIWA 13 on admission. She does not have a primary care physician. MD aware of pt's admission with orders received. Pt educated regarding use of the call light and all questions answered. Fall and seizure precautions in place. Bed is down with call light in reach.
[2017-02-26] MEDS ORDERED: MAGNESIUM HYDROXIDE 30 ML LIQUID UDC ONE (01:02)
--- NOTE | 2017-02-26 01:20 | NUR ---
PRN Milk of Magnesia and Benadryl Pt reports no BM since 02/24 and inability to sleep. Encouraged fluids. PRN Milk of Magnesia and Benadryl administered.
[2017-02-26] MEDS ORDERED: diphenhydrAMINE 50 MG CAPSULE ONE (01:31)
[2017-02-26] MEDS ORDERED: LORAZEPAM 1 MG TABLET ONE (01:53)
--- NOTE | 2017-02-26 02:20 | NUR ---
PRN Milk of Magnesia and Benadryl reassessment PRN Benadryl effective. Pt is lying in bed resting with eyes closed. Respirations even and unlabored. No BM reported yet. Safety measures in place.
[2017-02-26 04:30] VITALS: BP 89/58
[2017-02-26 05:14] LABS: *AMPHETAMINE, URINE POSITIVE (NEGATIVE); *BARBITURATE, URINE NEGATIVE (NEGATIVE); *COCCAINE, URINE NEGATIVE (NEGATIVE)
[2017-02-26 05:15] LABS: *CANNABINOID, URINE NEGATIVE (NEGATIVE); *OPIATE, URINE NEGATIVE (NEGATIVE); *PHENCYCLIDINE SCREEN,URINE NEGATIVE (NEGATIVE)
[2017-02-26 05:35] LABS: IRON, SERUM 58 ug/dL (50-175)
[2017-02-26] MEDS ORDERED: TRAZ-147 PO (06:16)
--- NOTE | 2017-02-26 07:20 | NUR ---
END OF SHIFT Report provided to day shift nurse. Pt is lying in bed resting. She is a 57 yo female admitted to [facility] on 02/25/17 at 2332 for BZD and ETOH withdrawal. One time Ativan and PRN Clonidine administered upon admission. She was able to sleep after. Last COWS 5 and CIWA 6 after medications. Also administered PRN Milk of Magnesia and Benadryl. She drank 855mL and slept for 5 hours. Fall and seizure precautions in place. Bed is down with call light in reach.
--- NOTE | 2017-02-26 07:42 | NUR ---
Start of shift note; Received report from night nurse. Patient is a 56 year old female admitted on 02/25/17 to detoxify from Benzodiazepine, ETOH, opiate. Patient is on full code status, NKA, on pescetarian, kosher diet. Patient reported history of fibromyalgia, hepatitis C, arthritis, anxiety, depression, hypothyroid, anemia. Patient is on fall and seizure precaution. All safety measures secured. Will continue to monitor patient.
[2017-02-26 08:00] VITALS: BP 102/63
[2017-02-26] MEDS ORDERED: TUBERCULIN,PURIF.PROT.DERIV. 5 TU/0.1 ML TEST ID ONE (09:00)
[2017-02-26] MEDS: MULTIVITAMINS,THERAPEUTIC TABLET PO SCH (09:29)
[2017-02-26] MEDS: GABAPENTIN 300 MG CAPSULE PO SCH ×3 (09:29→21:06)
[2017-02-26] MEDS: THIAMINE HCL 100 MG TABLET PO SCH (09:29)
[2017-02-26] MEDS: LORAZEPAM 1 MG TABLET PO SCH ×4 (09:29→21:05)
[2017-02-26] MEDS: FOLIC ACID 1 MG TABLET PO SCH (09:29)
[2017-02-26] MEDS ORDERED: POTASSIUM CHLORIDE 20 MEQ TAB.PRT.SR PO ONE (09:45)
--- NOTE | 2017-02-26 10:09 | NUR ---
Potassium supplement; Patient's Potassium is 3.1, MD ordered Potassium supplement. Medication given as ordered.
[2017-02-26 12:00] VITALS: BP 98/68
[2017-02-26 16:00] VITALS: BP 98/68
--- NOTE | 2017-02-26 18:22 | NUR ---
End of shift note; Patient is AOx4. Patient completed treatment without any adverse reactions. Medications noted to be effective in reducing withdrawal symptoms. Patient participated in group therapies and activities. Patient's last CIWA is 6. All safety measures secured. Met all needs.
--- NOTE | 2017-02-26 19:55 | NUR ---
START OF SHIFT Received report from day shift nurse. Pt is lying in bed resting. She is a 57 yo female admitted to [facility] on 02/25 for BZD and ETOH withdrawal with a h/o heroin, meth, GHB, and marijuana use. She is A&O and ambulatory. NKA, full code, pescetarian and kosher diet. PMH of fibromyalgia, hepatitis C treated, arthritis, hypothyroid, anemia, anxiety, and depression. On admission she reported using Xanax 8mg per day, vodka 16oz per day, heroin 0.5-1 gram per day ,meth, and GHB. Last used heroin approximately 1.5 months ago. 5 day Ativan taper started today. Pt is noted with a depressed mood. She reports moderate anxiety, generalized aching, sweating off and on, and is observed with hand tremors. Fall and seizure precautions in place. Bed is down with call light in place.
[2017-02-26 20:00] VITALS: BP 106/68
[2017-02-26] MEDS ORDERED: ONDANSETRON 4 MG/2 ML VIAL IM PRN (21:00)
[2017-02-26] MEDS ORDERED: ONDANSETRON ODT 4 MG TAB.RAPDIS SL PRN (21:00)
[2017-02-26] MEDS: TRAZODONE 100 MG TABLET PO SCH (21:05)
[2017-02-26] MEDS: METHOCARBAMOL 750 MG TABLET PO PRN (21:06)
--- NOTE | 2017-02-26 21:07 | NUR ---
PRN Robaxin Pt reports generalized body aches 07/28. PRN Robaxin administered.
--- NOTE | 2017-02-26 22:07 | NUR ---
PRN Robaxin reassessment PRN Robaxin effective. Pt is lying in bed resting with eyes closed. Respirations even and unlabored. Safety measures in place.
[2017-02-27] VITALS: BP 90/58
--- NOTE | 2017-02-27 | NUR ---
0000 CIWA deferred CIWA ordered Q4HWA. Pt is lying in bed resting with eyes closed. Vitals signs obtained. Respirations even and unlabored. Safety measures in place.
[2017-02-27 04:00] VITALS: BP 92/55
--- NOTE | 2017-02-27 04:00 | NUR ---
0400 CIWA deferred CIWA ordered Q4HWA. Pt is lying in bed resting with eyes closed. Vitals signs obtained. Respirations even and unlabored. Safety measures in place.
--- NOTE | 2017-02-27 07:21 | NUR ---
END OF SHIFT Report provided to day shift nurse. Pt is lying in bed resting. She is a 57 yo female admitted to [facility] on 02/25 for BZD and ETOH withdrawal with a h/o heroin, meth, GHB, and marijuana use. She is A&O and ambulatory. NKA, full code, pescetarian and kosher diet. PMH of fibromyalgia, hepatitis C treated, arthritis, hypothyroid, anemia, anxiety, and depression. On admission she reported using Xanax 8mg per day, vodka 16oz per day, heroin 0.5-1 gram per day ,meth, and GHB. Last used heroin approximately 1.5 months ago. 5 day Ativan taper started today. PRN Robaxin administered. She reported that she just wanted to get some sleep. Last CIWA score 11 before night medications. She drank 855mL and slept for 9 hours. Fall and seizure precautions in place. Bed is down with call light in place.
--- NOTE | 2017-02-27 07:37 | NUR ---
Start of shift note; Received report from night nurse. Patient is a 56 year old female admitted on 02/25/17 to detoxify from Benzodiazepine, ETOH, opiate. Patient is on full code status, NKA, on pescetarian, kosher diet. Patient reported history of fibromyalgia, hepatitis C, arthritis, anxiety, depression, hypothyroid, anemia. Patient is on fall and seizure precaution. All safety measures secured. Patient's last CIWA score is 11 at 2100 per endorsement.Will continue to monitor patient.
[2017-02-27 08:00] VITALS: BP 98/62
[2017-02-27 08:06] LABS: HEPATITIS B SURFACE AG Negative (Negative)
[2017-02-27] MEDS: MULTIVITAMINS,THERAPEUTIC TABLET PO SCH (09:02)
[2017-02-27] MEDS: THIAMINE HCL 100 MG TABLET PO SCH (09:02)
[2017-02-27] MEDS: LORAZEPAM 1 MG TABLET PO SCH ×3 (09:03→20:05)
[2017-02-27] MEDS: GABAPENTIN 300 MG CAPSULE PO SCH (09:03)
[2017-02-27] MEDS: FOLIC ACID 1 MG TABLET PO SCH (09:03)
[2017-02-27] MEDS ORDERED: LORAZEPAM 1 MG TABLET PO ONE (11:00)
--- NOTE | 2017-02-27 11:00 | NUR ---
MD order; ordered one time dose of Ativan 2mg PO now for signs and symptoms of withdrawals and anxiety. Medication order entered d/t unable to have access to [employer] at this time. Medication given as ordered by . Addendum: 02/27/17 at 1109 by MAEGAN RG LVN Patient's current CIWA score is 9.
[2017-02-27 12:00] VITALS: BP 104/70
--- NOTE | 2017-02-27 12:00 | NUR ---
Re-assessment; Patient's current CIWA is 6. One time dose of Ativan noted to be effective.
[2017-02-27] MEDS: GABAPENTIN 400 MG CAPSULE PO SCH ×2 (14:53→20:05)
[2017-02-27 16:00] VITALS: BP 92/62
--- NOTE | 2017-02-27 18:13 | NUR ---
End of shift note; Patient is AOX4. Patient remained compliant with treatment plan and medication regime. Medications were effective in reducing withdrawal symptoms. Patient's last CIWA score is 3. Patient is medically cleared for discharge tomorrow. All safety measures secured. Met all needs. Addendum: 02/27/17 at 1816 by MAEGAN RG LVN CLARIFICATION; Patient is note cleared for discharge, patient to continue Ativan taper.
[2017-02-27] MEDS: METHOCARBAMOL 750 MG TABLET PO PRN (19:25)
--- NOTE | 2017-02-27 19:30 | NUR ---
PRN ROBAXIN, ZOFRAN ODT, AND BENTYL ADMINISTRATION Pt complains of body aches 5/10, nausea with no vomiting episodes and stomach spasms. Safety measures in place. Call light within reach. Will continue to monitor.
--- NOTE | 2017-02-27 19:30 | NUR ---
START OF SHIFT Pt is a 56 y/o female admitted on 02/25/17 for benzo, ETOH, opiate and meth dependence. Pt is full code, NKA, pescetarian/kosher diet and on fall/seizure precautions. No reported seizure hx. Pt reports PMH of fibromyalgia, hypothyroid, hepatitis C, arthritis, anxiety and depression. Pt is on a 5 day Ativan taper that started on 02/26/17. Pt received Ativan 2 mg x 1 at 1100 during day shift. Last CIWA 3. Upon assessment pt complains of sense of panic with severe anxiety, pt is tearful. Encouraged relaxation/breathing techniques. Pt also presents with sweats, flushed skin, restlessness, body aches 5/10, mild tremors, nausea, stomach cramps, headache, decreased appetite, intermittent chills, photosensitivity, dysphoria and anhedonia. Denies V/D. Denies chest pain or SOB. Respirations even and unlabored. Medications due. Safety measures in place.
[2017-02-27 20:00] VITALS: BP 107/71
[2017-02-27] MEDS: TRAZODONE 100 MG TABLET PO SCH (20:04)
[2017-02-27] MEDS: CLONIDINE HCL 0.1 MG TABLET PO SCH (20:05)
--- NOTE | 2017-02-27 20:30 | NUR ---
PRN KATELYN MARTINEZ AND LUIS REASSESSMENT Pt reports improvement in body aches to tolerable level and states that her nausea and stomach cramps have ceased. Safety measures in place. Call light within reach. Will continue to monitor.
[2017-02-27] MEDS ORDERED: LORAZEPAM 1 MG TABLET PO PRN (21:00)
--- NOTE | 2017-02-28 | NUR ---
CIWA DEFERRED AND VITALS REFUSED Pt laying in bed with eyes closed, CIWA deferred, to be assessed when pt is awake per orders. Vitals refused. Respirations even and unlabored. Safety measures in place. Call light within reach. Will continue to monitor.
--- NOTE | 2017-02-28 07:06 | NUR ---
END OF SHIFT Pt is a 56 y/o female admitted on 02/25/17 for benzo, ETOH, opiate and meth dependence. Pt is full code, NKA, pescetarian/kosher diet and on fall/seizure precautions. No reported seizure hx. Pt reports PMH of fibromyalgia, hypothyroid, hepatitis C, arthritis, anxiety and depression. Pt is on a 5 day Ativan taper that started on 02/26/17, tolerating well. Pt presented with a sense of panic, sweats, flushed skin, restlessness, body aches 5/10, mild tremors, nausea, stomach cramps, headache, decreased appetite, intermittent chills, photosensitivity, dysphoria, anhedonia and was tearful. Encouraged relaxation/breathing techniques. Scheduled medications and PRN Robaxin, Zofran and Bentyl administered, effective in S/S of withdrawal as verbalized by pt. Last CIWA 16 at 1999. Pt slept 9 hours. Intake 1184 ml, void x 3, stool x 0. Safety measures in place. Call light within reach. Pts needs have been met. Endorsed to day shift nurse.
[2017-02-28 08:00] VITALS: BP 112/76
[2017-02-28] MEDS: MULTIVITAMINS,THERAPEUTIC TABLET PO SCH (09:20)
[2017-02-28] MEDS: THIAMINE HCL 100 MG TABLET PO SCH (09:20)
[2017-02-28] MEDS: GABAPENTIN 400 MG CAPSULE PO SCH (09:20)
[2017-02-28] MEDS: FOLIC ACID 1 MG TABLET PO SCH (09:20)
[2017-02-28] MEDS: buPROPion SR 100 MG TABLET.SA PO SCH (09:21)
[2017-02-28] MEDS: LORAZEPAM 1 MG TABLET PO SCH ×4 (09:21→20:13)
--- NOTE | 2017-02-28 09:30 | NUR ---
START OF SHIFT Received report from alkylation operator nurse. Patient is 57 year old female admitted for medically supervised withdrawal from alprazolam and alcohol. Patient is full code with NKA. On assessment this AM: CIWA: 9. Denies SOB, chest pain. Patients vitals signs WNL. Patient reports anxiety, tremors, tactile disturbances and feelings of fullness around her head. Denies nausea, vomiting, stomach cramping, diarrhea, sweating, agitation, auditory or visual hallucinations at this time. Compliant with AM meds. No PRN given. Patient has steady gait. Encouraged to attend group meetings today. Will continue to monitor patient.
[2017-02-28 12:00] VITALS: BP 111/78
--- NOTE | 2017-02-28 15:15 | NUR ---
Therapist prompted client about group times. Client stated she wants to rest because she is feeling anxious.
[2017-02-28 16:00] VITALS: BP 120/73
[2017-02-28] MEDS: GABAPENTIN 300 MG CAPSULE PO SCH ×2 (16:04→20:13)
--- NOTE | 2017-02-28 18:37 | NUR ---
END OF SHIFT Patient is 57 year old female admitted for medically supervised withdrawal from alprazolam and alcohol. Patient is full code with NKA. Patient on Ativan taper. Most recent CIWA: 8. Denies SOB, chest pain. Patients vitals signs WNL. Patient complains that Ativan 1mg is not sufficient to address her withdrawal symptoms, MD was notified. Patient received Ativan 2mg po in the afternoon as ordered. CIWA at 16:00pm was 8. Patient reports anxiety, tremors, tactile disturbances, and feelings of fullness around her head. Denies nausea, vomiting, stomach cramping, diarrhea, sweating, agitation, auditory or visual hallucinations at this time. Compliant with meds this shift. No PRN given. BM X1. well site drilling engineershift nurse manager will continue to monitor patient.
--- NOTE | 2017-02-28 19:15 | NUR ---
Start of Shift Note: Patient is a 57 y.o female admitted on 02/25/17 for ETOH and Benzo dependence. Patient reported taking Xanax 5mg daily, drinks ETOH(Vodka) 16oz daily, & uses IV Meth daily for 30 days. Patient reported also that she uses GHB and Marijuana. Patient follows a Pescetarian diet and has no known food and drug allergies. Full Code status. Patient has PMHx of Fibromyalgia, Hep C, Arthritis, Anxiety, Depression, Anemia & Hypothyroidism. No seizure history noted. Skin noted to be intact. Patient is on a 5-day Ativan taper and tolerating well. Last CIWA is 8. Pt did not received any PRN medications during day shift. Patient is alert & oriented x4. No shortness of breath noted. Respiration even & unlabored. Abdomen soft & non-distended. No nausea/vomiting noted. Patient presented with moderate anxiety and slight agitation. Patient denies any pain & discomfort at this time. Slight bilateral hand tremors noted. Patient denies any hallucinations. Safety precautions are in place. Bed locked in lowest position. Both side rails up. Call light within pts reach. Will continue to monitor patient.
[2017-02-28 20:00] VITALS: BP 116/85
[2017-02-28] MEDS: TRAZODONE 100 MG TABLET PO SCH (20:09)
[2017-02-28] MEDS: CLONIDINE HCL 0.1 MG TABLET PO SCH (20:13)
--- NOTE | 2017-03-01 07:06 | NUR ---
End of Shift Note: Pt had an uneventful night. Pt continues on her Ativan taper and tolerating well. Patient did not received any PRN medications during my shift. Patient presented with moderate anxiety, somewhat agitated, sweating & tremors with a CIWA of 8 At 2000. Patient is stable and remains compliant with medications. Closely monitored symptoms. Vitals monitored closely and noted within normal limits. Patient still asleep at this time with no s/s of distress noted. Patient slept for a total of 7 hours. Fluid intake 1100ml. Encourage pt to increase fluid intake. Voided 1x with no bowel movement. Safety measures in place. Will endorse pt to day shift nurse.
--- NOTE | 2017-03-01 07:18 | NUR ---
BEGINNING OF SHIFT Patient endorsement report received from hog grader nurse, all pertinent information discussed. Patient is a 57 year old female admitted on 02/25/2017. With admitting Dx: bzo/etoh dependence. Patient continues on a 5 day Ativan taper as ordered, and is currently scheduled to begin day 3 of taper. Patient received no PRN medications during hog grader. Patient slept for 10 hours with last ciwa score of: 2. Patient skin is intact. Fall and seizure precautions observed at all times. Patient received in bed with eyes closed and respirations even and unlabored. Will educate patient regarding plan of care for the day and medication regimen. will monitor closely.
[2017-03-01 08:19] VITALS: BP 109/64
[2017-03-01] MEDS: buPROPion SR 100 MG TABLET.SA PO SCH (08:37)
[2017-03-01] MEDS: FOLIC ACID 1 MG TABLET PO SCH (08:37)
[2017-03-01] MEDS: GABAPENTIN 300 MG CAPSULE PO SCH (08:37)
[2017-03-01] MEDS: MULTIVITAMINS,THERAPEUTIC TABLET PO SCH (08:37)
[2017-03-01] MEDS: HYDROXYZINE PAMOATE 25 MG CAPSULE PO PRN (08:37)
[2017-03-01] MEDS: LORAZEPAM 1 MG TABLET PO SCH ×3 (08:37→20:11)
[2017-03-01] MEDS: THIAMINE HCL 100 MG TABLET PO SCH (08:37)
--- NOTE | 2017-03-01 08:45 | NUR ---
PRN VISTARIL Patient c/o increase in anxiety, provided with non pharmacological interventions with no relief, administered Vistaril as ordered. patient currently with ciwa score of: 8, administered detox medications as ordered, will monitor closely.
--- NOTE | 2017-03-01 09:45 | NUR ---
VISTARIL REASSESSMENT Patient reports medication effective, feels less anxious will continue to monitor closely.
[2017-03-01] MEDS ORDERED: LORAZEPAM 1 MG TABLET PO ONE (12:00)
[2017-03-01 12:09] VITALS: BP 135/83
--- NOTE | 2017-03-01 12:10 | NUR ---
ONE TIME ATIVAN Patient alert and oriented x4, presenting with: fine tremors, anxiety, barely sweating and mild agitation with ciwa score of: 8. As per MD patient to receive an additional dose of one time Ativan 1mg PO, medication was administered as ordered, will continue to monitor.
[2017-03-01 14:07] VITALS: BP 135/83
[2017-03-01] MEDS: GABAPENTIN 400 MG CAPSULE PO SCH ×2 (14:08→20:11)
[2017-03-01 17:02] VITALS: BP 128/91
--- NOTE | 2017-03-01 19:04 | NUR ---
END OF SHIFT Patient alert and oriented x4, vital signs WNL during shift. Patient compliant with therapeutic plan of care. Admitting Dx: etoh dependence and continues on 5 day Ativan taper as ordered. Patient received one additional dose of Ativan 1mg PO During shift, for s/sx of withdrawal. Patient also received PRN: Vistaril during shift, medication was effective. Patient presented with: fine tremors, anxiety, barely sweating and, mild agitation with ciwa score of: 8. 0900 CIWA: 8; 1300 CIWA: 8; 1700 CIWA: 8. Encouraged patient to increase PO fluid intake as tolerated, to facilitate detox. Encouraged patient to attend group therapies/sessions to learn new coping skills to prevent relapse. patient noted attending and participating, denies SI/HI. Safety measures in place. call light kept with in reach. all needs met and rendered, call light kept with in reach. Safety measures in place. Patient endorsed to director intelligence analysis programs nurse, all pertinent information discussed.
--- NOTE | 2017-03-01 19:15 | NUR ---
Start of Shift Note: Patient is a 57 y.o female admitted on 02/25/17 for ETOH and Benzo dependence. Patient reported taking Xanax 5mg daily, drinks ETOH(Vodka) 16oz daily, & uses IV Meth daily for 30 days. Patient reported also that she uses GHB and Marijuana. Patient follows a Pescetarian diet and has no known food and drug allergies. Full Code status. Patient has PMHx of Fibromyalgia, Hep C, Arthritis, Anxiety, Depression, Anemia & Hypothyroidism. No seizure history noted. Skin noted to be intact. Patient continues on a 5-day Ativan taper and tolerating well. Last CIWA is 8. Pt received a one time dose of Ativan 1mg for anxiety during day shift. Patient is alert & oriented x4. Patient appears depressed and anxious. No shortness of breath noted. Respiration even & unlabored. Abdomen soft & non-distended. No nausea/vomiting noted. Patient presented with moderate anxiety and agitation. Patient denies any pain & discomfort at this time. Slight bilateral hand tremors noted. Patient denies any hallucinations. Safety precautions are in place. Bed locked in lowest position. Both side rails up. Call light within pts reach. Will continue to monitor patient.
[2017-03-01 20:00] VITALS: BP 152/91
[2017-03-01] MEDS: TRAZODONE 100 MG TABLET PO SCH (20:11)
[2017-03-01] MEDS: CLONIDINE HCL 0.1 MG TABLET PO SCH (20:12)
--- NOTE | 2017-03-01 20:30 | NUR ---
RN note Patient observed with moderate anxiety and agitation. Patient is emotionally crying and stated "nobody is here to help me, Im so anxious and depressed". Patient is upset that her Ativan taper is decreasing in dose and doesnt help her anxiety. Allowed patient to verbalized feelings. Patient is currently taking Wellbutrin for depression. Ativan taper and scheduled medication given as scheduled. Will continue to monitor patient.
--- NOTE | 2017-03-01 22:00 | NUR ---
Patient observed in room asleep and shows no s/s of distress. Patient appears calm and comfortable in bed. Safety measures in place. Will continue to monitor patient.
[2017-03-01] MEDS ORDERED: holy basil (23:43)
[2017-03-01] MEDS ORDERED: LICORICE (23:43)
--- NOTE | 2017-03-02 07:10 | NUR ---
End of Shift Note: Pt had an uneventful night. Pt continues on her Ativan taper and tolerating well. Patient did not received any PRN medications during my shift. Patient presented with moderate anxiety, & agitations, sweating & tremors with a CIWA of 9 At 2000. Patient is stable and remains compliant with medications. Closely monitored symptoms of withdrawal. Vitals monitored closely and noted within normal limits. Patient still asleep at this time with no s/s of distress noted. Patient slept for a total of 8 hours. Fluid intake 1680ml. Encourage pt to increase fluid intake. Voided 3x with no bowel movement. Safety measures in place. Will endorse pt to day shift nurse.
--- NOTE | 2017-03-02 07:26 | NUR ---
BEGINNING OF SHIFT Patient endorsement report received from nightclub manager nurse, all pertinent information discussed. Patient is a 57 year old female admitted on 02/25/2017. With admitting Dx: bzo/etoh dependence. Patient continues on a 5 day Ativan taper as ordered, and is currently scheduled to begin day 4 of taper. Patient received no PRN medications during nightclub manager. Patient slept for 8 hours with last ciwa score of: 9. Patient skin is intact. Fall and seizure precautions observed at all times. Patient received in bed with eyes closed and respirations even and unlabored. Will educate patient regarding plan of care for the day and medication regimen. will monitor closely.
[2017-03-02 08:31] VITALS: BP 109/63
[2017-03-02] MEDS: FOLIC ACID 1 MG TABLET PO SCH (08:46)
[2017-03-02] MEDS: MULTIVITAMINS,THERAPEUTIC TABLET PO SCH (08:46)
[2017-03-02] MEDS: THIAMINE HCL 100 MG TABLET PO SCH (08:46)
[2017-03-02] MEDS: GABAPENTIN 400 MG CAPSULE PO SCH (08:47)
[2017-03-02] MEDS: HYDROXYZINE PAMOATE 25 MG CAPSULE PO PRN (08:47)
[2017-03-02] MEDS: buPROPion SR 100 MG TABLET.SA PO SCH (08:47)
[2017-03-02] MEDS: LORAZEPAM 1 MG TABLET PO SCH ×3 (08:47→20:04)
--- NOTE | 2017-03-02 08:47 | NUR ---
PRN VISTARIL Patient c/o increase in anxiety, provided with non pharmacological interventions with no relief, administered Vistaril as ordered. patient currently with ciwa score of: 9, administered detox medications as ordered, will monitor closely.
[2017-03-02] MEDS ORDERED: LORAZEPAM 1 MG TABLET PO SCH (09:00)
--- NOTE | 2017-03-02 09:47 | NUR ---
VISTARIL REASSESSMENT Patient reports medication effective, feels less anxious will continue to monitor closely.
[2017-03-02 12:28] VITALS: BP 144/92
[2017-03-02] MEDS: CLONIDINE HCL 0.1 MG TABLET PO PRN (12:29)
--- NOTE | 2017-03-02 12:29 | NUR ---
PRN CLONIDINE Patient with bp: 144/92 heart rate of: 100, will continue to monitor.
--- NOTE | 2017-03-02 12:29 | NUR ---
Therapist prompted client to come to group. Client agreed to come.
[2017-03-02] MEDS ORDERED: LORAZEPAM 1 MG TABLET PO ONE (13:30)
--- NOTE | 2017-03-02 13:39 | NUR ---
ClONIDINE REASSESSMENT bp decreased: bp: 140/89 heart rate: 98, patient denies any chest pain/dizziness. will continue to monitor closely.
[2017-03-02] MEDS: HYDROXYZINE PAMOATE 25 MG CAPSULE PO SCH ×3 (13:42→20:04)
--- NOTE | 2017-03-02 13:42 | NUR ---
ONE TIME ATIVAN Patient alert and oriented x4, presenting with: fine tremors, Increase anxiety, barely sweating and agitation with ciwa score of: 10. As per MD patient to receive an additional dose of one time Ativan 1mg PO, medication was administered as ordered, will continue to monitor.
[2017-03-02] MEDS ORDERED: GABAPENTIN 400 MG CAPSULE PO SCH (15:00)
[2017-03-02 16:39] VITALS: BP 138/85
--- NOTE | 2017-03-02 16:50 | NUR ---
LATE ADMINISTRATION OF ATIVAN Patient was in group, unable to administer Ativan as ordered at 1500. MD is aware. Will continue to monitor.
--- NOTE | 2017-03-02 19:04 | NUR ---
END OF SHIFT Patient alert and oriented x4, vital signs WNL during shift. Patient compliant with therapeutic plan of care. Admitting Dx: etoh dependence and continues on 5 day Ativan taper as ordered. Patient received one additional dose of Ativan 1mg PO During shift, for s/sx of withdrawal. Patient also received PRN: Vistaril, and clonidine during shift, medications were effective. Patient presented with: fine tremors, anxiety, barely sweating and, agitation with ciwa score of: 9. 0900 CIWA: 9; 1300 CIWA: 10; 1700 CIWA: 9. Encouraged patient to increase PO fluid intake as tolerated, to facilitate detox. Encouraged patient to attend group therapies/sessions to learn new coping skills to prevent relapse. patient noted attending and participating, denies SI/HI. Safety measures in place. call light kept with in reach. all needs met and rendered, call light kept with in reach. Safety measures in place. Patient endorsed to warehouse shift supervisor nurse, all pertinent information discussed.
--- NOTE | 2017-03-02 19:30 | NUR ---
START OF SHIFT Pt is a 56 y/o female admitted on 02/25/17 for benzo, ETOH, opiate and meth dependence. Pt is full code, NKA, pescetarian/kosher diet and on fall/seizure precautions. No reported seizure hx. Pt reports PMH of fibromyalgia, hypothyroid, hepatitis C, arthritis, anxiety and depression. Pt is on a 5 day Ativan taper that started on 02/26/17. Pt received Ativan 1 mg x 1 at 1342 during day shift as well as PRN Vistaril and Clonidine. Last CIWA 9. Upon assessment pt presents with severe anxiety, occasional sense of panic, emotional lability, fatigue, sweats, flushed skin, restlessness, body aches 5/10, malaise, mild tremors, mild nausea, intermittent headache, decreased appetite, dysphoria and anhedonia. Denies V/D. Denies chest pain or SOB. Respirations even and unlabored. Medications due. Safety measures in place. Addendum: 03/02/17 at 2332 by LAZARO DONIS RN Pt also presented with moderate to severe agitation.
[2017-03-02 20:00] VITALS: BP 117/65
[2017-03-02] MEDS: GABAPENTIN 300 MG CAPSULE PO SCH (20:04)
[2017-03-02] MEDS: TRAZODONE 100 MG TABLET PO SCH (20:04)
[2017-03-02] MEDS: CLONIDINE HCL 0.1 MG TABLET PO SCH (20:36)
--- NOTE | 2017-03-02 21:00 | NUR ---
SCHEDULED CLONIDINE HELD BP 117/65 HR 83, orders to hold Clonidine for BP <100/70. Safety measures in place. Call light within reach. Will continue to monitor.
--- NOTE | 2017-03-03 | NUR ---
CIWA DEFERRED AND VITALS REFUSED Pt laying in bed with eyes closed, CIWA deferred, to be assessed when pt is awake per orders. Vitals refused. Respirations 16, even and unlabored. Safety measures in place. Call light within reach. Will continue to monitor.
[2017-03-03] MEDS: HYDROXYZINE PAMOATE 25 MG CAPSULE PO SCH ×6 (01:30→20:31)
--- NOTE | 2017-03-03 01:30 | NUR ---
SCHEDULED VISTARIL HELD Pt laying in bed with eyes closed, orders to hold Vistaril for sedation. Safety measures in place. Call light within reach. Will continue to monitor.
--- NOTE | 2017-03-03 05:30 | NUR ---
SCHEDULED VISTARIL HELD Pt laying in bed with eyes closed, orders to hold Vistaril for sedation/sleeping. Safety measures in place. Call light within reach. Will continue to monitor.
--- NOTE | 2017-03-03 07:05 | NUR ---
END OF SHIFT Pt is a 56 y/o female admitted on 02/25/17 for benzo, ETOH, opiate and meth dependence. Pt is full code, NKA, pescetarian/kosher diet and on fall/seizure precautions. No reported seizure hx. Pt reports PMH of fibromyalgia, hypothyroid, hepatitis C, arthritis, anxiety and depression. Pt is on a 5 day Ativan taper that started on 02/26/17, tolerating well. Upon assessment pt presents with severe anxiety, moderate to severe agitation, occasional sense of panic, emotional lability, fatigue, sweats, flushed skin, restlessness, body aches 5/10, malaise, mild tremors, mild nausea, intermittent headache, decreased appetite, dysphoria and anhedonia. Scheduled medications administered, effective in S/S of withdrawal as verbalized by pt. Scheduled Clonidine held d/t BP 117/65. No PRNs administered. Last CIWA 12 at 1999. Pt slept 9 hours. Intake 1000 ml, void x 3, stool x 0. Safety measures in place. Call light within reach. Pts needs have been met. Endorsed to day shift nurse.
--- NOTE | 2017-03-03 07:32 | NUR ---
BEGINNING OF SHIFT Patient endorsement report received from material handler 1st shift nurse, all pertinent information discussed. Patient is a 57 year old female admitted on 02/25/2017. With admitting Dx: bzo/etoh dependence. Patient continues on a 5 day Ativan taper as ordered, and is currently scheduled to begin day 5 of taper. Patient received no PRN medications during material handler 1st shift. Patient slept for 9 hours with last ciwa score of: 10. Patient skin is intact. Fall and seizure precautions observed at all times. Patient received in bed with eyes closed and respirations even and unlabored. Will educate patient regarding plan of care for the day and medication regimen. will monitor closely.
[2017-03-03 08:13] VITALS: BP 111/63
[2017-03-03 08:33] LABS: BASOPHILS # (AUTO) 0.1 K/uL (0.0-8.0); EOSINOPHILS # (AUTO) 0.4 K/uL (0.0-0.7); EOSINOPHILS % (AUTO) 7.2 % (0.0-7.0); HEMOGLOBIN 11.9 g/dL (10.9-14.3); LYMPHOCYTES # (AUTO) 2.2 K/uL (20.0-40.0); LYMPHOCYTES % (AUTO) 39.6 % (20.5-51.5); MEAN CORPUSCULAR HEMOGLOBIN 30.5 uug (24.7-32.8); MEAN CORPUSCULAR HGB CONC 34 g/dL (32.3-35.6); MEAN CORPUSCULAR VOLUME 89.2 fL (75.5-95.3); MONOCYTES # (AUTO) 0.6 K/uL (2.0-10.0); MONOCYTES % (AUTO) 9.9 % (0.0-11.0); NEUTROPHILS # (AUTO) 2.4 K/uL (1.8-8.9); NEUTROPHILS % (AUTO) 42.3 % (38.5-71.5); PLATELET COUNT (AUTO) 256 K/uL (179-408); RED BLOOD CELL COUNT(AUTO) 3.92 MIL/uL (3.63-4.92); WHITE BLOOD COUNT (AUTO) 5.6 K/uL (3.8-11.8)
[2017-03-03 08:43] LABS: CREATININE 0.9 mg/dL (0.6-1.3); MAGNESIUM 2.1 mg/dL (1.8-2.4); POTASSIUM 4.5 mmol/L (3.5-5.1)
[2017-03-03] MEDS ORDERED: LORAZEPAM 1 MG TABLET PO SCH (09:00)
[2017-03-03] MEDS: GABAPENTIN 300 MG CAPSULE PO SCH ×3 (09:01→20:06)
[2017-03-03] MEDS: buPROPion SR 100 MG TABLET.SA PO SCH (09:01)
[2017-03-03] MEDS: MULTIVITAMINS,THERAPEUTIC TABLET PO SCH (09:02)
[2017-03-03] MEDS: THIAMINE HCL 100 MG TABLET PO SCH (09:02)
[2017-03-03] MEDS: FOLIC ACID 1 MG TABLET PO SCH (09:02)
[2017-03-03 12:43] VITALS: BP 117/81
[2017-03-03] MEDS ORDERED: BUPR100T6 PO (13:49)
[2017-03-03] MEDS ORDERED: GABA-534 PO (13:49)
[2017-03-03] MEDS ORDERED: METH-406 PO (13:49)
[2017-03-03] MEDS ORDERED: CLON0.1T14 PO (13:49)
[2017-03-03] MEDS ORDERED: HYDR-3895 PO (13:49)
[2017-03-03] MEDS ORDERED: DICY20TA28 PO (13:49)
[2017-03-03 16:44] VITALS: BP 138/84
--- NOTE | 2017-03-03 19:03 | NUR ---
END OF SHIFT Patient alert and oriented x4, vital signs WNL during shift. Patient compliant with therapeutic plan of care. Admitting Dx: etoh dependence and continues on 5 day Ativan taper as ordered. Patient received last administration of Ativan taper this morning, well tolerated, no ASE noted. Patient presented with: tremors that can be felt but not seen, barely sweating, anxiety and agitation. 0900 CIWA: 9; 1300 CIWA: 6; 1700 CIWA: 6. Encouraged patient to increase PO fluid intake as tolerated, to facilitate detox. Encouraged patient to attend group therapies/sessions to learn new coping skills to prevent relapse. patient noted attending and participating, denies SI/HI. Safety measures in place. call light kept with in reach. all needs met and rendered, call light kept with in reach. Safety measures in place. Patient endorsed to hand tacker nurse, all pertinent information discussed.
[2017-03-03 20:00] VITALS: BP 117/80
--- NOTE | 2017-03-03 20:00 | NUR ---
START OF SHIFT NOTE RECEIVED REPORT FROM DAY SHIFT NURSE. PATIENT IS A 56 YEAR OLD FEMALE ADMITTED FOR BENZO AND ETOH DEPENDENCE. PATIENT COMPLETED 5 DAY ATIVAN TAPER, TOLERATED WELL AND NO ADVERSE REACTION. PATIENT IS MEDICALLY CLEARED TO BE DISCHARGE TOMORROW. PATIENT IS PESCETARIAN AND KOSHER DIET. NO SEIZURE HISTORY. SIN INTACT. PATIENT WAS ANXIOUS DURING THE DAY, ON ROUTINE VISTARIL. NO PRN MEDICATION GIVEN. LAST CIWA 6. RECEIVED PATIENT ALERT AND ORIENTED X 4. PATIENT PRESENTS WITH ANXIETY DUE TO HER LEAVING TOMORROW. RELAXATION TECHNIQUE PROVIDED AND POSITIVE ENCOURAGEMENT GIVEN. SAFETY MEASURES IN PLACE. CALL LIGHT IN REACH. WILL CONTINUE TO MONITOR
[2017-03-03] MEDS: TRAZODONE 100 MG TABLET PO SCH (20:06)
[2017-03-03] MEDS: CLONIDINE HCL 0.1 MG TABLET PO SCH (20:06)
--- NOTE | 2017-03-04 | NUR ---
CIWA DEFERRED PATIENT SLEEPING. CIWA DEFERRED. REFUSED VS. RESPIRATION EVEN AND UNLABORED. SAFETY MEASURES IN PLACE. CALL LIGHT IN REACH. WILL CONTINUE TO MONITOR.
[2017-03-04] MEDS: HYDROXYZINE PAMOATE 25 MG CAPSULE PO SCH ×3 (01:30→08:37)
--- NOTE | 2017-03-04 04:00 | NUR ---
CIWA DEFERRED PATIENT SLEEPING. CIWA DEFERRED. REFUSED VS. RESPIRATION EVEN AND UNLABORED. SAFETY MEASURES IN PLACE. CALL LIGHT IN REACH. WILL CONTINUE TO MONITOR.
--- NOTE | 2017-03-04 07:09 | NUR ---
END OF SHIFT NOTE PATIENT SLEPT 7 HOURS. FLUID INTAKE 1,000 ML. VOIDED X 3. NO BM. PATIENT COMPLETED 5 DAY ATIVAN TAPER, TOLERATED WELL AND NO ADVERSE REACTION. PATIENT IS MEDICALLY CLEARED TO BE DISCHARGE TODAY. PATIENT WAS ANXIOUS BEGINNING OF SHIFT DUE TO HER LEAVING. RELAXATION TECHNIQUE PROVIDED AND POSITIVE ENCOURAGEMENT GIVEN. PATIENT DID NOT REQUIRE ANY PRN MEDICATION. VISTARIL AT 0130 AND 0530 HELD DUE TO PATIENT SLEEPING. SAFETY MEASURES IN PLACE. CALL LIGHT IN REACH. WILL CONTINUE TO MONITOR. LAST CIWA 1.
--- NOTE | 2017-03-04 07:30 | NUR ---
START OF SHIFT NOTE: Received report from mine shifter nurse. Pt is a 56 y/o female admitted on 02/25/17 for benzo, ETOH, opiate and meth dependence. Pt completed a 5 day Ativan taper. Pt is alert and oriented X4. Color good, skin warm and dry. Respirations even and unlabored. Safety precautions observed. Call light within reach.
[2017-03-04] MEDS: MULTIVITAMINS,THERAPEUTIC TABLET PO SCH (08:37)
[2017-03-04] MEDS: GABAPENTIN 300 MG CAPSULE PO SCH (08:37)
[2017-03-04] MEDS: buPROPion SR 100 MG TABLET.SA PO SCH (08:37)
[2017-03-04] MEDS: FOLIC ACID 1 MG TABLET PO SCH (08:38)
[2017-03-04] MEDS: THIAMINE HCL 100 MG TABLET PO SCH (08:38)
[2017-03-04 09:30] VITALS: BP 119/78
== END 2017-03-04 10:05 | disposition other institution (70) | DRG 895 ==
LOC: SRC 22:35
PROVIDERS: ADMIT Internal Medicine; ATTEND Internal Medicine
PROC: HZ2ZZZZ Detoxification Services for Substance Abuse Treatment (ICD-10-PCS; principal; 2017-02-25)
PROC: HZ41ZZZ Group Counseling for Substance Abuse Treatment, Behavioral (ICD-10-PCS; 2017-02-26)
PROC: HZ31ZZZ Individual Counseling for Substance Abuse Treatment, Behavioral (ICD-10-PCS; 2017-02-28)
DX: F10.232 Alcohol dependence with withdrawal with perceptual disturbance (principal); Z86.74 Personal history of sudden cardiac arrest; D50.9 Iron deficiency anemia, unspecified; F11.20 Opioid dependence, uncomplicated; B18.2 Chronic viral hepatitis C; F12.10 Cannabis abuse, uncomplicated; F15.229 Other stimulant dependence with intoxication, unspecified; F13.232 Sedative, hypnotic or anxiolytic dependence with withdrawal with perceptual disturbance; E87.6 Hypokalemia; Y90.9 Presence of alcohol in blood, level not specified; Z91.89 Other specified personal risk factors, not elsewhere classified; F17.210 Nicotine dependence, cigarettes, uncomplicated; M79.7 Fibromyalgia; Z81.1 Family history of alcohol abuse and dependence; Z80.0 Family history of malignant neoplasm of digestive organs; F31.9 Bipolar disorder, unspecified; F41.9 Anxiety disorder, unspecified; I10 Essential (primary) hypertension; Z79.899 Other long term (current) drug therapy
CPT/HCPCS: 36415; 70030-TC; 80307; 83550; 83735; 84100; 84703; 85025; 86580; 86592; 86705; 86803; 87340; 87806; A4663; G0480; J3411; Q0162; Q0163